=== PATIENT | male | born 1955 | race Two or more races ===

== ENCOUNTER 2022-04-10 23:34 | Inpatient (IN) | payer OTHER, MEDICAID ==
[~2022-04-10] VITALS: Ht 157.5 cm; Wt 71.1 kg
[~2022-04-10 23:34] MED LIST: ASPI-431 PO; CANA100T PO; CHOL20009 PO; GABA250S2 PO; GLIM4TAB PO; HYDR-4833 GT; LOSA-39 PO; METF-372 PO; pravastatin PO
[2022-04-11 01:38] LABS: Basophils # (auto) 0.1 10 ^3/uL (0-0.2); Basophils % (auto) 0.9 % (0.0-2.0); Eosinophils # (auto) 0.2 10 ^3/uL (0-0.8); Hematocrit 38.9 % (41.0-53.0); Hemoglobin 13.2 g/dL (13.5-17.5); Lymphocytes # (auto) 1.6 10 ^3/uL (0.4-5.4); Lymphocytes % (auto) 28.6 % (10.0-50.0); Mean Corpuscular Hemoglobin 29.7 pg (28.0-32.0); Mean Corpuscular Hgb Conc. 34.1 g/dL (32.0-36.0); Mean Corpuscular Volume 87.3 fL (80.0-100.0); Monocytes # (auto) 0.5 10 ^3/uL (0-1.3); Monocytes % (auto) 9.3 % (0.0-12.0); Neutrophils # (auto) 3.2 10 ^3/uL (1.6-8.6); Neutrophils % (auto) 58.2 % (37.0-80.0); Nucleated Red Blood Cells % 0.1 %; Red Blood Cells 4.45 10^6/uL (4.5-5.90); Red Cell Distribution Width 13.3 % (11.8-14.3); White Blood Cell 5.4 10^3/uL (4.4-10.8)
[2022-04-11 01:54] LABS: Albumin 3.7 g/dL (3.4-5.0); BUN/Creatinine Ratio 14.6; Calcium 8.1 mg/dL (8.5-10.1); Magnesium 2.3 mg/dL (1.6-2.6); Potassium 5.4 mmol/L (3.5-5.1)
[2022-04-11 01:56] LABS: Bilirubin, Total 0.3 mg/dL (0.2-1.0); Total Protein 7.2 g/dL (6.4-8.2)
[2022-04-11] MEDS ORDERED: ASPirin 325 MG TAB PO ONE (02:45)
[2022-04-11] MEDS ORDERED: NITROGLYCERIN 0.4 MG SL TAB SL ONE (02:45)
[2022-04-11] MEDS ORDERED: MORPHINE SULFATE INJ 2 MG/ml SYRG IV ONE (02:45)
[2022-04-11] MEDS ORDERED: ACETAMINOPHEN 325 MG TAB PO PRN (07:00)
[2022-04-11] MEDS ORDERED: DEXTROSE (50%) 50ML SYRG IV PRN (07:00)
[2022-04-11] MEDS ORDERED: ONDANSETRON HCL 4 MG/2 ML VIAL IV PRN (07:00)
[2022-04-11] MEDS ORDERED: NITROGLYCERIN 0.4 MG SL TAB SL PRN (07:00)
[2022-04-11] MEDS ORDERED: cloNIDine HCL 0.1 MG TAB PO PRN (07:00)
[2022-04-11] MEDS ORDERED: MORPHINE SULFATE INJ 2 MG/ml SYRG IV PRN (07:00)
[2022-04-11] MEDS ORDERED: ENOXAPARIN SOD 80 MG/0.8ML SYRINGE SC ONE (07:15)
[2022-04-11] MEDS ORDERED: SODIUM ZIRCONIUM CYCL 10 GM PAK PO ONE (09:30)
[2022-04-11] MEDS: METOPROLOL TARTRATE 25 MG TAB PO SCH ×2 (09:44→21:27)
[2022-04-11] MEDS: amLODIPine BESYLATE 5 MG TAB PO SCH (09:45)
[2022-04-11] MEDS: ASPirin 81 mg TAB PO SCH (09:45)
[2022-04-11 09:58] LABS: Cholesterol 313 mg/dL (< 200)
[2022-04-11] MEDS ORDERED: PANTOPRAZOLE 40 MG TAB PO SCH (10:00)
[2022-04-11 10:01] LABS: HDL Cholesterol 41 mg/dL (40-59); Triglycerides 529 mg/dL (< 150)
[2022-04-11] MEDS ORDERED: ADENOSINE 60 MG in GIVE UN-DILUTED 0 ML IV STA (10:44)
[2022-04-11] MEDS: ACCU-CHEK COMFORT CURVE STRIP VI SCH ×2 (11:43→17:32)
[2022-04-11] MEDS: InsuLIN REG 1unit/0.01ml Soln (100units/ml) SC SCH ×2 (11:47→17:39)
[2022-04-11 13:08] VITALS: BP 147/88
[2022-04-11 18:27] VITALS: BP 157/99
[2022-04-11 20:00] VITALS: BP 154/92
[2022-04-11] MEDS: ATORVASTATIN 20 MG TAB PO SCH (21:28)
[2022-04-11 22:00] VITALS: BP 120/78
[2022-04-12] MEDS: ACCU-CHEK COMFORT CURVE STRIP VI SCH ×5 (00:09→23:45)
[2022-04-12] MEDS: InsuLIN REG 1unit/0.01ml Soln (100units/ml) SC SCH ×5 (00:12→23:46)
[2022-04-12 03:24] LABS: Basophils # (auto) 0.1 10 ^3/uL (0-0.2); Basophils % (auto) 0.8 % (0.0-2.0); Eosinophils # (auto) 0.2 10 ^3/uL (0-0.8); Eosinophils % (auto) 2.7 % (0.0-7.0); Hematocrit 36.1 % (41.0-53.0); Hemoglobin 12.5 g/dL (13.5-17.5); Lymphocytes # (auto) 2.2 10 ^3/uL (0.4-5.4); Lymphocytes % (auto) 34.5 % (10.0-50.0); Mean Corpuscular Hgb Conc. 34.7 g/dL (32.0-36.0); Mean Corpuscular Volume 86.7 fL (80.0-100.0); Monocytes # (auto) 0.6 10 ^3/uL (0-1.3); Monocytes % (auto) 8.9 % (0.0-12.0); Neutrophils # (auto) 3.4 10 ^3/uL (1.6-8.6); Neutrophils % (auto) 53.1 % (37.0-80.0); Nucleated Red Blood Cells % 0.1 %; Red Blood Cells 4.17 10^6/uL (4.5-5.90); Red Cell Distribution Width 13.5 % (11.8-14.3); White Blood Cell 6.4 10^3/uL (4.4-10.8)
[2022-04-12 03:43] LABS: Calcium 8.1 mg/dL (8.5-10.1); Potassium 4.7 mmol/L (3.5-5.1); Uric Acid 5.1 mg/dL (3.5-7.2)
[2022-04-12 03:46] LABS: BUN/Creatinine Ratio 16.8; Bilirubin, Total 0.2 mg/dL (0.2-1.0); Phosphorus 2.9 mg/dL (2.5-4.90); Total Protein 6.2 g/dL (6.4-8.2)
[2022-04-12 05:00] VITALS: BP 106/67
[2022-04-12 09:33] VITALS: BP 146/86
[2022-04-12] MEDS: ASPirin 81 mg TAB PO SCH (09:54)
[2022-04-12] MEDS: METOPROLOL TARTRATE 25 MG TAB PO SCH ×2 (09:54→21:57)
[2022-04-12] MEDS: amLODIPine BESYLATE 5 MG TAB PO SCH (09:54)
[2022-04-12] MEDS: ENOXAPARIN SOD 30 MG/0.3 ML SYRINGE SC SCH (09:56)
[2022-04-12 12:42] VITALS: BP 141/81
[2022-04-12 16:34] VITALS: BP 133/75
[2022-04-12 21:28] LABS: Urine Bacteria NONE SEEN /hpf (None Seen); Urine Blood Negative /uL (Negative); Urine Specific Gravity 1.011 (1.001-1.035); Urine WBC <1 /hpf (0 - 3)
[2022-04-12] MEDS: ATORVASTATIN 20 MG TAB PO SCH (21:57)
[2022-04-12 22:00] VITALS: BP 134/82
[2022-04-13 03:19] LABS: Protein, Urine 145.6 mg/dL (0.0-11.9)
[2022-04-13 05:00] VITALS: BP 127/78
[2022-04-13] MEDS: ACCU-CHEK COMFORT CURVE STRIP VI SCH ×4 (05:36→23:11)
[2022-04-13] MEDS: InsuLIN REG 1unit/0.01ml Soln (100units/ml) SC SCH ×4 (05:41→23:15)
[2022-04-13 07:08] LABS: BUN/Creatinine Ratio 21.4; Calcium 8.8 mg/dL (8.5-10.1); Potassium 4.5 mmol/L (3.5-5.1)
[2022-04-13 08:00] VITALS: BP 140/82
[2022-04-13] MEDS: ASPirin 81 mg TAB PO SCH (10:35)
[2022-04-13] MEDS: METOPROLOL TARTRATE 25 MG TAB PO SCH ×2 (10:35→21:06)
[2022-04-13] MEDS: amLODIPine BESYLATE 5 MG TAB PO SCH (10:36)
[2022-04-13] MEDS: ENOXAPARIN SOD 30 MG/0.3 ML SYRINGE SC SCH (10:37)
[2022-04-13] MEDS: SODIUM CHLORIDE 0.9% 1,000 ML IV SCH (10:49)
[2022-04-13 12:00] VITALS: BP 144/82
[2022-04-13 16:00] VITALS: BP 127/67
[2022-04-13] MEDS: ATORVASTATIN 20 MG TAB PO SCH (21:05)
[2022-04-13 22:00] VITALS: BP 140/76
[2022-04-14 05:28] VITALS: BP 165/88
[2022-04-14] MEDS: InsuLIN REG 1unit/0.01ml Soln (100units/ml) SC SCH ×3 (05:56→17:54)
[2022-04-14] MEDS: ACCU-CHEK COMFORT CURVE STRIP VI SCH ×3 (05:57→17:51)
[2022-04-14] MEDS: SODIUM CHLORIDE 0.9% 1,000 ML IV SCH (06:14)
[2022-04-14 06:28] LABS: Basophils # (auto) 0 10 ^3/uL (0-0.2); Basophils % (auto) 0.5 % (0.0-2.0); Eosinophils # (auto) 0.2 10 ^3/uL (0-0.8); Eosinophils % (auto) 3.3 % (0.0-7.0); Hematocrit 38.1 % (41.0-53.0); Hemoglobin 13.4 g/dL (13.5-17.5); Mean Corpuscular Hemoglobin 30.3 pg (28.0-32.0); Mean Corpuscular Hgb Conc. 35.3 g/dL (32.0-36.0); Mean Corpuscular Volume 85.8 fL (80.0-100.0); Monocytes # (auto) 0.6 10 ^3/uL (0-1.3); Monocytes % (auto) 9.5 % (0.0-12.0); Neutrophils # (auto) 3.1 10 ^3/uL (1.6-8.6); Neutrophils % (auto) 52.7 % (37.0-80.0); Nucleated Red Blood Cells % 0.1 %; Red Blood Cells 4.44 10^6/uL (4.5-5.90); Red Cell Distribution Width 13.2 % (11.8-14.3); White Blood Cell 5.9 10^3/uL (4.4-10.8)
[2022-04-14 06:31] LABS: BUN/Creatinine Ratio 21.8; Calcium 8.5 mg/dL (8.5-10.1); Potassium 4.6 mmol/L (3.5-5.1)
[2022-04-14 06:35] LABS: INR 0.92 (0.9-1.15); Partial Thromboplastin Time 25.6 sec (24.6-33.4)
[2022-04-14 08:00] VITALS: BP 156/87
[2022-04-14] MEDS: ACETYLCYSTEINE ORAL for CIN 20%(200MG/ML) 4ML PO SCH ×2 (10:00→22:00)
[2022-04-14] MEDS: METOPROLOL TARTRATE 25 MG TAB PO SCH ×2 (10:05→22:07)
[2022-04-14] MEDS: ASPirin 81 mg TAB PO SCH (10:05)
[2022-04-14] MEDS: amLODIPine BESYLATE 5 MG TAB PO SCH (10:06)
[2022-04-14] MEDS: ENOXAPARIN SOD 30 MG/0.3 ML SYRINGE SC SCH (10:07)
[2022-04-14 13:00] VITALS: BP 115/79
[2022-04-14 16:52] VITALS: BP 131/74
[2022-04-14 22:00] VITALS: BP 126/66
[2022-04-14] MEDS: ATORVASTATIN 20 MG TAB PO SCH (22:06)
[2022-04-14] MEDS ORDERED: DULA1INJ SC (23:57)
[2022-04-15] MEDS: SODIUM CHLORIDE 0.9% 1,000 ML IV SCH ×2 (02:17→22:10)
[2022-04-15 05:00] VITALS: BP 126/76
[2022-04-15] MEDS: InsuLIN REG 1unit/0.01ml Soln (100units/ml) SC SCH ×5 (06:15→23:12)
[2022-04-15] MEDS: ACCU-CHEK COMFORT CURVE STRIP VI SCH ×5 (06:16→23:07)
[2022-04-15 09:00] VITALS: BP 139/79
[2022-04-15] MEDS: ACETYLCYSTEINE ORAL for CIN 20%(200MG/ML) 4ML PO SCH ×2 (09:12→22:00)
[2022-04-15] MEDS: METOPROLOL TARTRATE 25 MG TAB PO SCH ×2 (10:08→22:10)
[2022-04-15] MEDS: ASPirin 81 mg TAB PO SCH (10:08)
[2022-04-15] MEDS: ENOXAPARIN SOD 30 MG/0.3 ML SYRINGE SC SCH (10:09)
[2022-04-15] MEDS: amLODIPine BESYLATE 5 MG TAB PO SCH (10:09)
[2022-04-15 11:04] LABS: BUN/Creatinine Ratio 23.4; Calcium 8.5 mg/dL (8.5-10.1); Potassium 5.1 mmol/L (3.5-5.1)
[2022-04-15 13:00] VITALS: BP 154/73
[2022-04-15 17:00] VITALS: BP 118/76
[2022-04-15 22:00] VITALS: BP 124/88
[2022-04-15] MEDS: ATORVASTATIN 20 MG TAB PO SCH (22:10)
[2022-04-16 05:00] VITALS: BP 152/81
[2022-04-16 06:04] LABS: Calcium 8.8 mg/dL (8.5-10.1); Potassium 4.7 mmol/L (3.5-5.1)
[2022-04-16 06:09] LABS: BUN/Creatinine Ratio 22.7
[2022-04-16] MEDS: ACCU-CHEK COMFORT CURVE STRIP VI SCH ×4 (06:29→23:24)
[2022-04-16] MEDS: InsuLIN REG 1unit/0.01ml Soln (100units/ml) SC SCH ×4 (06:32→23:24)
[2022-04-16 08:00] VITALS: BP 118/68
[2022-04-16 09:00] VITALS: BP 118/68
[2022-04-16] MEDS: ASPirin 81 mg TAB PO SCH (11:43)
[2022-04-16] MEDS: amLODIPine BESYLATE 5 MG TAB PO SCH (11:44)
[2022-04-16] MEDS: ENOXAPARIN SOD 30 MG/0.3 ML SYRINGE SC SCH (11:44)
[2022-04-16] MEDS: METOPROLOL TARTRATE 25 MG TAB PO SCH ×2 (11:44→21:31)
[2022-04-16 13:00] VITALS: BP 152/87
[2022-04-16] MEDS: SODIUM CHLORIDE 0.9% 1,000 ML IV SCH (16:00)
[2022-04-16 17:00] VITALS: BP 147/78
[2022-04-16] MEDS: ATORVASTATIN 20 MG TAB PO SCH (21:31)
[2022-04-16 22:00] VITALS: BP 121/75
[2022-04-17 05:00] VITALS: BP 134/79
[2022-04-17 05:36] LABS: BUN/Creatinine Ratio 20.5; Calcium 8.3 mg/dL (8.5-10.1); Potassium 5.1 mmol/L (3.5-5.1)
[2022-04-17] MEDS: ACCU-CHEK COMFORT CURVE STRIP VI SCH ×3 (05:42→17:28)
[2022-04-17] MEDS: InsuLIN REG 1unit/0.01ml Soln (100units/ml) SC SCH ×4 (05:43→21:49)
[2022-04-17 09:01] VITALS: BP 148/87
[2022-04-17] MEDS: METOPROLOL TARTRATE 25 MG TAB PO SCH (09:45)
[2022-04-17] MEDS: ASPirin 81 mg TAB PO SCH (09:45)
[2022-04-17] MEDS: ENOXAPARIN SOD 30 MG/0.3 ML SYRINGE SC SCH (09:45)
[2022-04-17] MEDS: amLODIPine BESYLATE 5 MG TAB PO SCH (09:45)
[2022-04-17 13:00] VITALS: BP 121/76
[2022-04-17] MEDS: SODIUM CHLORIDE 0.9% 1,000 ML IV SCH (14:12)
[2022-04-17 17:00] VITALS: BP 141/83
[2022-04-17 20:00] VITALS: BP 121/76
[2022-04-17 22:00] VITALS: BP 149/89
[2022-04-18] MEDS: ATORVASTATIN 20 MG TAB PO SCH (04:34)
[2022-04-18] MEDS: METOPROLOL TARTRATE 25 MG TAB PO SCH ×2 (04:35→09:15)
[2022-04-18 05:00] VITALS: BP 124/70
[2022-04-18] MEDS: InsuLIN REG 1unit/0.01ml Soln (100units/ml) SC SCH ×2 (06:00→11:08)
[2022-04-18] MEDS: ACCU-CHEK COMFORT CURVE STRIP VI SCH ×3 (06:00→11:08)
[2022-04-18 06:29] LABS: BUN/Creatinine Ratio 18.9; Calcium 8.4 mg/dL (8.5-10.1); Potassium 4.9 mmol/L (3.5-5.1)
[2022-04-18 08:00] VITALS: BP 124/71
[2022-04-18 08:36] VITALS: BP 124/71
[2022-04-18] MEDS: SODIUM CHLORIDE 0.9% 1,000 ML IV SCH (09:14)
[2022-04-18] MEDS: amLODIPine BESYLATE 5 MG TAB PO SCH (09:16)
[2022-04-18] MEDS ORDERED: APIXABAN 5 MG TAB PO SCH (10:00)
[2022-04-18] MEDS ORDERED: ASPirin 81 mg TAB PO SCH (10:00)
[2022-04-18] MEDS ORDERED: APIX5TAB PO (11:32)
[2022-04-18] MEDS ORDERED: AMIO200T33 PO (11:32)
[2022-04-18 12:17] VITALS: BP 124/71
[2022-04-18 13:13] VITALS: BP 137/77
== END 2022-04-18 13:32 | disposition home or self-care (01) | DRG 280 ==
LOC: ER 23:34 → TELE 04-11 07:02 → TELE-WESTW 04-11 18:28
PROVIDERS: ADMIT Nurse Practitioner; ATTEND Family Medicine
DX: I21.4 Non-ST elevation (NSTEMI) myocardial infarction (principal); I50.33 Acute on chronic diastolic (congestive) heart failure; N17.0 Acute kidney failure with tubular necrosis; I16.1 Hypertensive emergency; I13.0 Hypertensive heart and chronic kidney disease with heart failure and stage 1 through stage 4 chronic kidney disease, or unspecified chronic kidney disease; I25.10 Atherosclerotic heart disease of native coronary artery without angina pectoris; N40.0 Benign prostatic hyperplasia without lower urinary tract symptoms; Z20.822 Contact with and (suspected) exposure to COVID-19; N18.32 Chronic kidney disease, stage 3b; E11.22 Type 2 diabetes mellitus with diabetic chronic kidney disease; E11.21 Type 2 diabetes mellitus with diabetic nephropathy; E66.01 Morbid (severe) obesity due to excess calories; E78.00 Pure hypercholesterolemia, unspecified; I48.0 Paroxysmal atrial fibrillation; Z68.29 Body mass index [BMI] 29.0-29.9, adult; Z79.4 Long term (current) use of insulin; Z79.899 Other long term (current) drug therapy; Z82.3 Family history of stroke; Z82.49 Family history of ischemic heart disease and other diseases of the circulatory system; Z83.3 Family history of diabetes mellitus; Z95.1 Presence of aortocoronary bypass graft
CPT/HCPCS: 36415; 71046; 78452; 80048; 80053; 80061; 81001; 82570; 82962; 83036; 83735; 83880; 84100; 84156; 84300; 84443; 84484; 84550; 85025; 85610; 85730; 86850; 86900; 86901; 87426; 93005; 93017; 93306; 96365; 96372; 99291; G0378; J0153; J1815

== ENCOUNTER 2023-02-09 14:00 | Emergency (ER) | payer OTHER, MEDICAID ==
[~2023-02-09] VITALS: Ht 160 cm; Wt 71.3 kg
[~2023-02-09 14:00] MED LIST changes: +AMIO200T33 PO; +APIX5TAB PO; +DULA1INJ SC; -GABA250S2 PO; +GABA250S7 PO; -LOSA-39 PO; +LOSA100T58 PO
[2023-02-09] MEDS ORDERED: SODIUM CHLORIDE 0.9% 1,000 ML IV ONE (14:30)
[2023-02-09 14:47] LABS: Basophils # (auto) 0.1 10 ^3/uL (0-0.2); Basophils % (auto) 0.6 % (0.0-2.0); Eosinophils # (auto) 0.2 10 ^3/uL (0-0.8); Eosinophils % (auto) 2.3 % (0.0-7.0); Hematocrit 38.6 % (41.0-53.0); Hemoglobin 12.8 g/dL (13.5-17.5); Lymphocytes # (auto) 1.9 10 ^3/uL (0.4-5.4); Lymphocytes % (auto) 24.4 % (10.0-50.0); Mean Corpuscular Hemoglobin 29.3 pg (28.0-32.0); Mean Corpuscular Hgb Conc. 33.2 g/dL (32.0-36.0); Monocytes # (auto) 0.7 10 ^3/uL (0-1.3); Monocytes % (auto) 8.6 % (0.0-12.0); Neutrophils # (auto) 5.1 10 ^3/uL (1.6-8.6); Neutrophils % (auto) 64.1 % (37.0-80.0); Nucleated Red Blood Cells % 0.1 %; Red Blood Cells 4.38 10^6/uL (4.5-5.90); Red Cell Distribution Width 13.5 % (11.8-14.3)
[2023-02-09 15:30] LABS: Alanine Aminotransferase 18 U/L (7-40); Albumin 4.5 g/dL (3.2-4.8); Alkaline Phosphatase 118 U/L (46-116); Anion Gap 10.5 (5-15); Aspartate Aminotransferase 16 U/L (13-40); BUN/Creatinine Ratio 18.5 (10.0-20.0); Blood Urea Nitrogen 34 mg/dL (9-23); Calcium 9.7 mg/dL (8.5-10.1); Carbon Dioxide 19.5 mmol/L (20-30); Chloride 108 mmol/L (98-107); Glucose 132 mg/dL (74-106); Sodium 138 mmol/L (136-145)
[2023-02-09 15:31] LABS: Bilirubin, Total 0.5 mg/dL (0.2-1.0); Total Protein 6.9 g/dL (5.7-8.2)
[2023-02-09 15:52] LABS: Urine Bacteria FEW /hpf (None Seen); Urine Blood TRACE /uL (Negative); Urine Clarity HAZY (Clear); Urine Color Yellow (Yellow); Urine Hyaline Cast MANY /lpf (0 - 2); Urine Mucus FEW (None Seen); Urine Protein, UAD 3+ (Negative); Urine Specific Gravity 1.019 (1.001-1.035); Urine Urobilinogen Normal (Negative); Urine WBC 2 /hpf (0 - 3)
[2023-02-09 16:30] VITALS: BP 158/83; PULSE 88; RESP 18; TEMP 98.3; O2SAT 96
[2023-02-09] MEDS ORDERED: FUROSEMIDE 20 MG/2 ML VIAL IV ONE (16:45)
== END 2023-02-09 17:10 | disposition home or self-care (01) ==
LOC: ER 14:00
DX: E11.65 Type 2 diabetes mellitus with hyperglycemia (principal); R07.89 Other chest pain; I10 Essential (primary) hypertension; I25.2 Old myocardial infarction; E78.5 Hyperlipidemia, unspecified; Z95.1 Presence of aortocoronary bypass graft; Z79.82 Long term (current) use of aspirin; Z79.84 Long term (current) use of oral hypoglycemic drugs; Z79.899 Other long term (current) drug therapy
CPT/HCPCS: 36415; 71045; 80053; 81001; 84484; 85025; 96374; 99284; J1940; J7030

== ENCOUNTER 2024-05-29 21:15 | Emergency (ER) | payer OTHER, MEDICAID ==
[~2024-05-29] VITALS: Ht 160 cm; Wt 72.0 kg
[~2024-05-29 21:15] MED LIST changes: +LOSA-535 PO; -LOSA100T58 PO
--- NOTE | 2024-05-29 21:39 | ED.PDOC ---
General HPI Comments 69-year-old male who came to ER for urinary issues. Patient has history of hypertension, diabetes, MT, BPH. States for the past 4 days, he has been having bilateral flank pains radiating to his hypogastric area, associated with dysuria, urinary dribbling, and difficulty voiding. Noted to have nausea and headaches. Denies any fever or chills. Chief Complaint: Urinary Time Seen by MD: 21:36 Primary Care Provider: LYNNE Hylton notes: Nurses Notes Allergies: Coded Allergies: NO KNOWN ALLERGIES (Unverified , 11/16/12) Home Meds Active Scripts Amiodarone Hcl (Amiodarone Hcl) 200 Mg Tab, 200 MG PO BID, #180 TAB Prov:MARYBETH TEAGUE MD 04/18/22 Apixaban Base (ELIQUIS) 5 Mg Tab, 5 MG PO BID, #180 TAB Prov:MARYBETH TEAGUE MD 04/18/22 Reported Medications Dulaglutide (Trulicity) 0.75 Mg/0.5 Ml Inj, 0.75 MG SC, INJ 04/14/22 Canagliflozin (INVOKANA) 100 Mg Tab, PO DAILY, TAB 01/28/17 [pravastatin] No Conflict Check, 40 MG PO HS 11/22/12 Hydrocodone-Acetaminophen (Gorman 5/325MG) 1 Tab Tb, 1 TAB GT TIDP 11/22/12 Losartan Potassium (Losartan Potassium) 100 Mg Tab, 100 MG PO DAILY 11/22/12 Gabapentin (GABAPENTIN) 250 Mg/5 Ml Kaitlin, 300 MG PO TID 11/22/12 Aspirin (EQ ASPIRIN ADULT LOW DOSE) 81 Mg Tab, 81 MG PO DAILY 11/22/12 Cholecalciferol (VITAMIN D) 2,000 Unit Tab, 5000 UNIT PO QWEEKLY 11/22/12 Glimepiride (Amaryl) 4 Mg Tab, 4 MG PO BIDWM 11/22/12 Metformin Hydrochloride (Metformin Hcl) 1,000 Mg Tab, 2000 MG PO BIDAC 11/22/12 Information Source: Patient Mode of Arrival: Ambulatory Severity: Moderate Inability to void: Moderate Timing: Days Duration: Intermittent Has not urinated for: Minutes Onset: Spontaneous Symptoms: Dysuria, Inability to void History of: BPH Location: Suprapubic, (R) Flank, (L)Flank associated signs and symptoms: Abdominal Pain, Nausea, Flank Pain, Dysuria, Inability to Void Review of Systems: REVIEW OF SYSTEMS: No fever, no chills, or fatigue HEENT: No sore throat, no earache, no congestion, no neck pain. Cardiac: No chest pain. No palpitations. Lungs: No shortness of breath, no cough. GI: No nausea, no vomiting, no diarrhea, no constipation, (+) abdominal pain : (+) dysuria and inability to void, (+) flank pains, no frequency, or urgency. No hematuria. Musculoskeletal: No joint pain , no joint swelling, no extremity edema. Skin: No rash, no itching. Neuro: (+) headache, no dizziness, no weakness Vital Signs Vital Signs Date Time Temp Pulse Resp B/P (MAP) Pulse Ox O2 Delivery O2 Flow Rate FiO2 05/29/24 22:14 98.1 99 16 163/78 (106) 97 98.1 05/29/24 22:14 Room Air Physical Exam General: Awake, alert and oriented. No acute distress. Skin: Skin in warm, dry and intact. Appropriate color for ethnicity. Nailbeds pink with no cyanosis. HEENT: The head is normocephalic and atraumatic. Conjunctivae are clear without exudates or hemorrhage. Sclera is non-icteric. EOM are intact. No signs of nystagmus. Eyelids are normal in appearance without swelling or lesions. Oral mucosa is pink and moist Neck: The neck is supple with normal range of motion. No JVD. Cardiac: Heart rate and rhythm are normal. No murmurs, gallops, or rubs are auscultated. Respiratory: No signs of respiratory distress. Lung sounds are clear in all lobes bilaterally without rales, ronchi, or wheezes. Abdominal: Abdomen is soft, non-tender without distention. Bowel sounds are present and normoactive in all four quadrants. No CVA tenderness Extremities: Upper and lower extremities are atraumatic in appearance without deformity or edema. Neurological: The patient is awake, alert and oriented to person, place, and time with normal speech. Speech is clear. There is no facial asymmetry. Psychiatric: Appropriate mood and affect. Good judgement and insight. No visual or auditory hallucinations. Past Medical History PAST MEDICAL HISTORY: DM, High Lipids, HTN, MT Past Medical History (Other): Benign prostatic hypertrophy Surgical History: CABG, Unknown Family History Family History: Reviewed,noncontributory to illness Social History Smoker: Non-Smoker Alcohol: Denies ETOH Use Drugs: Denies Drug Use Lives In: Home Was a procedure done? Was a procedure done?: No Differential Diagnosis Kidney stone (Female): N/A Kidney stone (Male): Pyelonephritis, Renal failure, Strain, Urinary obstruction, Urolithiasis, Renal infarction, Urinary tract infection Urinary Problem (Male): Renal Failure, Urethritis, Urinary Retention, Urolithiasis, UTI, Other (STI) X-Ray, Labs, Meds, VS Vital Signs Date Time Temp Pulse Resp B/P (MAP) Pulse Ox O2 Delivery O2 Flow Rate FiO2 05/29/24 22:14 98.1 99 16 163/78 (106) 97 98.1 05/29/24 22:14 99 16 97 Room Air 05/29/24 21:30 98.1 99 16 163/78 (106) 97 Lab Test 05/29/24 22:35 05/29/24 22:05 Range/Units Urine Color Light-brown Yellow Urine Clarity Ex.turbid Clear Urine pH 5.5 5.0-9.0 Urine Specific Mason 1.015 1.001-1.035 Urine Protein 2+ H Negative Urine Ketones Negative Negative Urine Blood 3+ H Negative /uL Urine Nitrite Negative Negative Urine Bilirubin Negative Negative Urine Urobilinogen Normal Negative mg/dL Urine Leukocyte Esterase 3+ Negative /uL Urine RBC 24 0 - 3 /hpf Urine WBC 741 0 - 3 /hpf Urine WBC Clumps Present None Seen /hpf Urine Squamous Epithelial Cells Few <5 /hpf Urine Bacteria Mod H None Seen /hpf Urine Mucus Few None Seen Urine Glucose 4+ H Normal mg/dL White Blood Count 8.9 4.4-10.8 10^3/uL Red Blood Count 4.19 L 4.5-5.90 10^6/uL Hemoglobin 12.4 L 13.5-17.5 g/dL Hematocrit 37.8 L 41.0-53.0 % Mean Corpuscular Volume 90.1 80.0-100.0 fL Mean Corpuscular Hemoglobin 29.5 28.0-32.0 pg Mean Corpuscular Hemoglobin Concent 32.7 32.0-36.0 g/dL Red Cell Distribution Width 13.6 11.8-14.3 % Platelet Count 307 140-450 10^3/uL Mean Platelet Volume 8.4 6.9-10.8 fL Neutrophils (%) (Auto) 37.0-80.0 % Lymphocytes (%) (Auto) 10.0-50.0 % Monocytes (%) (Auto) 0.0-12.0 % Basophils (%) (Auto) 0.0-2.0 % Neutrophils # (Auto) 1.6-8.6 10 ^3/uL Lymphocytes # (Auto) 0.4-5.4 10 ^3/uL Monocytes # (Auto) 0-1.3 10 ^3/uL Differential Total Cells Counted 100.0 100 Neutrophils % (Manual) 73 37.0-80.0 Band Neutrophils % (Manual) 0 Lymphocytes % (Manual) 15 10.0-50.0 Monocytes % (Manual) 12 0-12 Eosinophils % (Manual) 0 0-7 Basophils % (Manual) 0 0.0-2.0 Metamyelocytes % (manual) 0 Myelocytes % (Manual) 0 Promyelocytes % (Manual) 0 Blast Cells % (Manual) 0 Reactive Lymphocytes 0 Platelet Estimate Adequate Sodium Level 141 136-145 mmol/L Potassium Level 5.1 3.5-5.1 mmol/L Chloride Level 110 H 98-107 mmol/L Carbon Dioxide Level 22 20-31 mmol/L Anion Gap 9 5-15 Blood Urea Nitrogen 46 H 9-23 mg/dL Creatinine 2.68 H 0.700-1.30 mg/dL Glomerular Filtration Rate Calc 25 >90 mL/min BUN/Creatinine Ratio 17.2 10.0-20.0 Serum Glucose 152 H 74-106 mg/dL Calcium Level 9.7 8.7-10.4 mg/dL Magnesium Level 2.5 1.6-2.6 mg/dL Total Bilirubin 0.3 0.2-1.0 mg/dL Aspartate Amino Transferase (AST) 13 13-40 U/L Alanine Aminotransferase (ALT) 25 7-40 U/L Alkaline Phosphatase 94 46-116 U/L Total Protein 7.2 5.7-8.2 g/dL Albumin 4.3 3.2-4.8 g/dL Current Medications Medications (Trade) Dose Ordered Sig/Linda Route Start Time Stop Time Status Last Admin Acetaminophen (Tylenol Tablet Or Capsule) 1,000 mg ONCE ONCE PO 05/29/24 21:45 05/29/24 21:49 DC 05/29/24 22:10 Exam: CT CT AB PEL WO CON-NO ORAL OR IV Findings: Lung Bases: No acute or significant lung base finding. Normal heart size. No pleural or pericardial effusion. Scattered coronary artery calcification. Calcifications of the aortic valve. Liver: The liver is normal in size. No focal lesions. Gallbladder and Biliary Tree: Unremarkable Spleen: Unremarkable Pancreas: The pancreas is grossly normal in appearance. Adrenal Glands: Unremarkable Kidneys: Punctate nonobstructing left renal calculus Bladder: There is diffuse bladder wall thickening measuring 5-6 mm. This may be due to poor urinary distention or infection Bowel: The stomach is grossly normal in appearance. Small bowel and colon are normal in caliber and distribution. The appendix is not visualized; however, no secondary findings of acute appendicitis identified. Ascites: Absent Lymphadenopathy: No mesenteric, retroperitoneal or periportal lymphadenopathy. Abdominal Wall and Mesentery: Unremarkable. Vasculature: The visualized abdominal aorta is normal in size and caliber. Evaluation of abdominal and pelvic vessels is limited due to lack of intravenous contrast. Pelvic Organs: Prostate measures 6 x 4.8 cm Musculoskeletal: No aggressive focal bony lesions, acute fractures or dislocation. Sternal wire sutures and Soft tissues: Unremarkable IMPRESSION: 1. Punctate nonobstructing left renal calculus. 2. Prostate measures 6 x 5 cm 3. Diffuse thickening of the bladder wall measuring 5-6 mm. This may be due to poor urinary distention or infection. EXAM: CT HEAD WITHOUT CONTRAST FINDINGS: There is no evidence of acute intracranial hemorrhage, extra-axial collection, mass effect, midline shift, herniation or hydrocephalus. Small lacunar infarct right basal ganglion The ventricles, sulci and cisterns are age appropriate. The alanis-white differentiation is intact. Patchy periventricular and subcortical white matter hypoattenuation is n onspecific but may be related to small vessel ischemic disease. The visualized paranasal sinuses and mastoid air cells are clear. The surrounding soft tissues and osseous structures are unremarkable. IMPRESSION: 1. No acute intracranial hemorrhage. 2. No CT findings of territorial ischemia. 3. Paranasal sinuses appear normal Time of 1ST Reevaluation: 21:32 Reevaluation 1ST: Unchanged Patient Education/Counseling: Diagnosis, Treatment Family Education/Counseling: No Family Present Departure 1 Departure Time of Disposition: 23:47 Impression: Primary Impression: Nephrolithiasis Additional Impression: Urinary tract infection Disposition: 01 HOME / SELF CARE / HOMELESS Condition: Stable Additional Instructions: INSTRUCCIONES DE LIZ DE Urgencias Instrucciones: Britt atentamente todas las instrucciones proporcionadas en lori paquete. jaimee antibiticos segn lo recetado. Aunque le hayan dado el liz del Departamento de Emergencias, esto no significa que tenga un "certificado de buena arnaldo". [] Hoy no se [place] realizado ningn diagnstico definitivo para black sntomas. Es posible que ests en proceso de desarrollar latonya enfermedad grave. Es por eso que debe regresar al servicio de urgencias sin falta si presenta algn sntoma nuevo o que empeora (especialmente si black sntomas incluyen dolor en el pecho, dificultad para respirar, dolor abdominal, fiebre, dolor de angeline, confusin, dificultad para araceli o caminar). Tambin es muy importante que consulte a un mdico de atencin primaria dentro de los prximos 3 a 5 padilla para realizar un seguimiento. Si no puede conseguir latonya colleen, regrese al servicio de urgencias para latonya nueva evaluacin. If you are unable to get an appointment, return to the ED for re-evaluation. Qu son los clculos renales? Los clculos renales son pequeas piedras que se olga dentro de los riones cuando las sales y los minerales que se encuentran normalmente en la orina se acumulan y se endurecen. Los clculos renales generalmente se expulsan del cuerpo al orinar, ofelia a veces pueden quedarse atascados en el mallory (figura 1). Si eso sucede, los clculos pueden causar: ?Dolor en el costado o en la parte baja del kvng del estmago ?Octavia en la orina (que puede hacer que la orina luzca cee o geo) ?Nuseas o vmitos ?Dolor al orinar ?Necesidad de orinar en forma urgente [employer] s si tengo clculos renales? Si jose mdico o enfermero piensa que usted tiene clculos renales, puede indicarle un estudio de imagen para detectar los clculos. (Los estudios de imagen crean imgenes del interior del cuerpo). [employer] Eng[employer] se tratan los clculos renales? El tratamiento de cada persona es un poco distinto. El tratamiento adecuado para usted depender de: ?El tamao, el tipo y la ubicacin del clculo ?Cunto dolor sienta ?Cunto est vomitando Si jose clculo es pequeo y solo causa sntomas leves, es posible que pueda quedarse en casa y esperar hasta que jose cuerpo lo expulse en la orina. Si probar esta opcin, jose mdico le dir qu hacer. [place] suele incluir: ?Beber mucho lquido ?Usar medicinas para el dolor o medicinas que faciliten la expulsin del clculo ?Orinar en un colador para atrapar el clculo cuando salga Si jose clculo es gissel o causa sntomas graves, es posible que necesite tratamiento en el hospital. Los clculos renales que no se expulsan naturalmente se pueden tratar con: ?"Litotripsia por onda de choque" Latonya mquina usa ondas sonoras para romper los clculos en pedazos ms pequeos. Lori procedimiento no incluye ciruga, ofelia puede ser doloroso. ?"Nefrolitotoma percutnea" Lori es un tipo especial de ciruga en la que un mdico hace orificios muy pequeos en jose piel, y pasa unos instrumentos minsculos a travs de los orificios y dentro del rin. Luego, elimina el clculo. ?"Ureteroscopa" Un mdico introduce un tubo moran en jose cuerpo de la misma manera que sale la orina. Usa instrumentos ubicados en el extremo del tubo para romper o sacar los clculos. A qu problemas martha prestar atencin? Si intentar expulsar el clculo renal en jose casa, llame a jose mdico o enfermero para que lo asesore si: ?No orina desde hace ms de 8 horas. ?Tiene fiebre de 100.4 F (38 C) o ms, o escalofros. ?Jose orina es opaca, huele mal o tiene ms octavia que antes. ?El dolor del clculo renal empeora mucho y la medicina para el dolor no ayuda. ?Vomita y no puede retener los lquidos. ?El dolor no desaparece en 1 a 2 semanas Qu puedo hacer para no volver a tener clculos renales? Calli yoly agua. Es posible que tambin deba hacer cambios en jose dieta, dependiendo de la composicin de black clculos. Si es as, el mdico o enfermero puede decirle qu alimentos evitar. El mdico o enfermero tambin podra recetarle medicinas nuevas para evitar que se formen nuevos clculos renales. e-Prescriptions Sulfamethoxazole W/Trimethopri (Bactrim Ds Tablet) 1 Tab Tb 1 TAB PO BID for 7 Days, #14 TAB Prov: ROLANDA RUSH MD 05/29/24 Tamsulosin Hcl (Flomax) 0.4 Mg Cap 0.4 MG PO DAILY for 7 Days, #7 CAP Prov: ROLANDA URSH MD 05/29/24 Acetaminophen (Acetaminophen Er) 650 Mg Tab 650 MG PO TID PRN for 5 Days, #15 TAB Prov: ROLANDA RUSH MD 05/29/24 Comments 69-year-old male with nephrolithiasis and urinary tract infection. Patient is stable in the emergency department. Patient well-appearing, nontoxic. Advised prompt follow-up with PCP, return to the ED with any new, worsening or concerning symptoms. Extensive evaluation was performed in attempt to identify or rule out: (See differential diagnosis section) The following tests were ordered, and results were reviewed by me: (See diagnostic results section) The following test were independently interpreted by me: N/A I reviewed and agreed with the following test results read by other providers: N/A I reviewed the following notes from the pt's past medical encounters: (None available at this time) Additional information was gathered from interviewing the following independent historians: N/A Discussion of management or test interpretation with external physician/other qualified health toddler caregiver: N/A Addressed an acute or chronic illness that poses a threat to life or bodily function: Nephrolithiasis with complication of urinary tract infection Decision regarding hospitalization or escalation of hospital level of care: R isks and benefits of admission for further treatment of patient's condition was considered however due to patient's stable condition patient will be discharged to follow up closely or return to care for worsening of condition or inability to follow up. Critical Care Note Critical Care Time?: No Stability Stability form required: No Heart Score Heart Score: Heart Score Response (Comments) Value History N/A 0 EKG N/A 0 Age N/A 0 Risk Factors N/A 0 Troponin N/A 0 Total 0 I personally scribed for ROLANDA RUSH MD ([employer]) on 05/29/24 at 21:39. Electronically submitted by Raul Myers ([employer]). I personally scribed for ROLANDA RUSH MD ([employer]) on 05/29/24 at 22:53. Electronically submitted by Raul Myers ([employer]). ROLANDA RUSH MD May 29, 2024 21:39
[2024-05-29] MEDS: ACETAMINOPHEN 500 MG TAB or CAP PO ONE (22:10)
[2024-05-29 22:19] LABS: Hematocrit 37.8 % (41.0-53.0); Hemoglobin 12.4 g/dL (13.5-17.5); Mean Corpuscular Hemoglobin 29.5 pg (28.0-32.0); Mean Corpuscular Hgb Conc. 32.7 g/dL (32.0-36.0); Mean Corpuscular Volume 90.1 fL (80.0-100.0); Platelet Count (auto) 307 10^3/uL (140-450); Red Blood Cells 4.19 10^6/uL (4.5-5.90); Red Cell Distribution Width 13.6 % (11.8-14.3); White Blood Cell 8.9 10^3/uL (4.4-10.8)
--- NOTE | 2024-05-29 22:28 | DVH ---
EXAM: CT HEAD WITHOUT CONTRAST INDICATION: Severe, new onset, change in headache symptoms. TECHNIQUE: CT of the head without intravenous contrast. Radiation Dose Information: CT Dose: CTDI volume is 56.89 mGy. Dose-length product is 1007.3 mGy*cm The dose indicators for CT are the volume Computed Tomography (CT) Dose Index (CTDIvol) and the Dose Length Product (DLP), and are measured in units of mGy and mGy-cm, respectively. These indicators are not patient dose, but values generated from the CT scanner acquisition factors. The report includes radiation exposure data for exposures received during this examination. COMPARISON: None FINDINGS: There is no evidence of acute intracranial hemorrhage, extra-axial collection, mass effect, midline s hift, herniation or hydrocephalus. Small lacunar infarct right basal ganglion The ventricles, sulci and cisterns are age appropriate. The aalnis-white differentiation is intact. Patchy periventricular and subcortical white matter hypoattenuation is nonspecific but may be related to small vessel ischemic disease. The visualized paranasal sinuses and mastoid air cells are clear. The surrounding soft tissues and osseous structures are unremarkable. IMPRESSION: 1. No acute intracranial hemorrhage. 2. No CT findings of territorial ischemia. 3. Paranasal sinuses appear normal
--- NOTE | 2024-05-29 22:33 | DVH ---
Exam: CT CT AB PEL WO CON-NO ORAL OR IV History: Flank pain, lower abdominal pain, difficulty urinating Comparison Study: None available at time of dictation. TECHNIQUE: Multidetector CT of the abdomen was performed from lung bases to pubic symphysis. Imaging was performed without IV contrast. Axial, coronal and sagittal multiplanar reformats were obtained fr om the axial data set by the technologist. Radiation Dose Information: CT Dose: CTDI volume is 8.62 mGy. Dose-length product is 544.03 mGy*cm FINDINGS: Evaluation of solid organs is limited due to lack of intravenous contrast use. Findings: Lung Bases: No acute or significant lung base finding. Normal heart size. No pleural or pericardial effusion. Scattered coronary artery calcification. Calcifications of the aortic valve. Liver: The liver is normal in size. No focal lesions. Gallbladder and Biliary Tree: Unremarkable Spleen: Unremarkable Pancreas: The pancreas is grossly normal in appearance. Adrenal Glands: Unremarkable Kidneys: Punctate nonobstructing left renal calculus Bladder: There is diffuse bladder wall thickening measuring 5-6 mm. This may be due to poor urinary d istention or infection Bowel: The stomach is grossly normal in appearance. Small bowel and colon are normal in caliber and d istribution. The appendix is not visualized; however, no secondary findings of acute appendicitis id entified. Ascites: Absent Lymphadenopathy: No mesenteric, retroperitoneal or periportal lymphadenopathy. Abdominal Wall and Mesentery: Unremarkable. Vasculature: The visualized abdominal aorta is normal in size and caliber. Evaluation of abdominal a nd pelvic vessels is limited due to lack of intravenous contrast. Pelvic Organs: Prostate measures 6 x 4.8 cm Musculoskeletal: No aggressive focal bony lesions, acute fractures or dislocation. Sternal wire sutur es and Soft tissues: Unremarkable IMPRESSION: 1. Punctate nonobstructing left renal calculus. 2. Prostate measures 6 x 5 cm 3. Diffuse thickening of the bladder wall measuring 5-6 mm. This may be due to poor urinary distentio n or infection. Radiation optimization: All CT scans at this facility use at least one of these dose optimization te chniques: automated exposure control mA and/or kV adjustment per patient size (includes targeted exa ms where dose is matched to clinical indication) or iterative reconstruction.
[2024-05-29 22:34] LABS: Alanine Aminotransferase 25 U/L (7-40); Albumin 4.3 g/dL (3.2-4.8); Alkaline Phosphatase 94 U/L (46-116); Anion Gap 9 (5-15); Aspartate Aminotransferase 13 U/L (13-40); BUN/Creatinine Ratio 17.2 (10.0-20.0); Bilirubin, Total 0.3 mg/dL (0.2-1.0); Calcium 9.7 mg/dL (8.7-10.4); Carbon Dioxide 22 mmol/L (20-31); Magnesium 2.5 mg/dL (1.6-2.6); Potassium 5.1 mmol/L (3.5-5.1); Sodium 141 mmol/L (136-145)
[2024-05-29 22:35] LABS: Band Neutrophils % (manual) 0; Basophils % (manual) 0 (0.0-2.0); Blast Cells 0; Eosinophils % (manual) 0 (0-7); Metamyelocytes % 0; Myelocytes % 0; Promyelocytes % 0; Reactive Lymphocytes 0; Total Protein 7.2 g/dL (5.7-8.2)
[2024-05-29 22:39] LABS: Blood Urea Nitrogen 46 mg/dL (9-23); Chloride 110 mmol/L (98-107); Glucose 152 mg/dL (74-106)
[2024-05-29 22:47] LABS: Urine Bacteria MOD /hpf (None Seen); Urine Blood 3+ /uL (Negative); Urine Clarity Ex.Turbid (Clear); Urine Color Light-Brown (Yellow); Urine Mucus FEW (None Seen); Urine Protein, UAD 2+ (Negative); Urine Specific Gravity 1.015 (1.001-1.035); Urine Urobilinogen Normal (Negative); Urine WBC 741 /hpf (0 - 3); Urine WBC Clumps PRESENT /hpf (None Seen); Urine pH 5.5 (5.0-9.0)
[2024-05-29 23:05] LABS: Lymphocytes % (manual) 15 (10.0-50.0); Monocytes % (manual) 12 (0-12); Platelet Estimate Adequate
[2024-05-29] MEDS ORDERED: TAMS-35 PO (23:53)
[2024-05-29] MEDS ORDERED: BACDST PO (23:53)
[2024-05-29] MEDS ORDERED: ACET650T12 PO (23:53)
[2024-05-30] MEDS: TAMSULOSIN HYDROCHLORIDE 0.4 MG CAP PO ONE (00:09)
[2024-05-30] MEDS: SULFAMETHOX W/TRIMETH(800/160MG) DS TAB PO ONE (00:09)
[2024-05-30 00:12] VITALS: BP 116/57; PULSE 77; RESP 17; O2SAT 96
[2024-05-30 00:13] VITALS: TEMP 98
== END 2024-05-30 00:19 | disposition home or self-care (01) ==
LOC: ER 21:15
DX: N20.0 Calculus of kidney (principal); N39.0 Urinary tract infection, site not specified; R51.9 Headache, unspecified; I10 Essential (primary) hypertension; E11.9 Type 2 diabetes mellitus without complications; I25.2 Old myocardial infarction; E78.5 Hyperlipidemia, unspecified; Z95.1 Presence of aortocoronary bypass graft; Z98.890 Other specified postprocedural states; Z79.01 Long term (current) use of anticoagulants; Z79.82 Long term (current) use of aspirin; Z79.84 Long term (current) use of oral hypoglycemic drugs; Z79.85 Long-term (current) use of injectable non-insulin antidiabetic drugs; Z79.899 Other long term (current) drug therapy
CPT/HCPCS: 36415; 70450; 74176; 80053; 81001; 83735; 85007; 85027

== ENCOUNTER 2025-02-17 07:17 | Inpatient (IN) | payer OTHER, MEDICAID ==
[~2025-02-17] VITALS: Ht 160 cm; Wt 74.1 kg
[~2025-02-17 07:17] MED LIST changes: +ACET650T12 PO; +BACDST PO; +TAMS-35 PO
[2025-02-17] MEDS: CARVEDILOL 3.125 MG TAB PO ONE (08:00)
[2025-02-17] MEDS: SACUBITRIL-VALSARTAN 24mg/26mg TAB PO STA (08:09)
[2025-02-17 08:23] LABS: Hematocrit 39.1 % (41.0-53.0); Hemoglobin 13.4 g/dL (13.5-17.5); Mean Corpuscular Hemoglobin 29.8 pg (28.0-32.0); Mean Corpuscular Volume 86.8 fL (80.0-100.0); Nucleated Red Blood Cells % 0.1 %
[2025-02-17 08:36] LABS: Chloride 103 mmol/L (98-107); Sodium 138 mmol/L (136-145)
[2025-02-17 08:37] LABS: Anion Gap 9 (5-15); Carbon Dioxide 26 mmol/L (20-31)
[2025-02-17 08:38] LABS: Calcium 9.1 mg/dL (8.7-10.4)
[2025-02-17 08:42] LABS: BUN/Creatinine Ratio 14.7 (10.0-20.0)
[2025-02-17 08:45] LABS: Blood Urea Nitrogen 35 mg/dL (9-23); Glucose 262 mg/dL (74-106); Potassium 5.2 mmol/L (3.5-5.1)
[2025-02-17 08:46] LABS: Urine Protein, UAD 2+ (Negative)
--- NOTE | 2025-02-17 09:09 | ED.PDOC ---
Musculoskeletal HPI Comments This is a pleasant 70-year-old male with extensive MHx that presents with right great toe pain. He has been experiencing pain in the right great toe since November after a toenail was cut leading to pain and bleeding. He noticed color changes and redness around the toe starting about a week and a half ago. Has not tried medications for the symptoms noted above. Chief Complaint: Wound Check Time Seen by MD: 07:23 Primary Care Provider: LYNNE Reviewed Notes: Nurses Notes, Medications, Allergies Allergies: Coded Allergies: NO KNOWN ALLERGIES (Unverified , 11/16/12) Home Meds Active Scripts Atorvastatin Calcium (Lipitor) 40 Mg Tab, 40 MG PO HS for 30 Days, #30 TAB Prov:ANTHONY DURAND RESIDENT 02/20/25 Doxycycline (Monohydrate) (Doxycycline) 100 Mg Cap, 100 MG PO BID for 30 Days, #60 CAP Prov:ANTHONY DURAND [facility] 02/20/25 Cefpodoxime Proxetil (Cefpodoxime Proxetil) 200 Mg Tab, 200 MG PO BID for 30 Days, #60 TAB Prov:ANTHONY DURAND [facility] 02/20/25 Sulfamethoxazole W/Trimethopri (Bactrim Ds Tablet) 1 Tab Tb, 1 TAB PO BID for 7 Days, #14 TAB Prov:ROLANDA RUSH MD 05/29/24 Tamsulosin Hcl (Flomax) 0.4 Mg Cap, 0.4 MG PO DAILY for 7 Days, #7 CAP Prov:ROLANDA RUSH MD 05/29/24 Acetaminophen (Acetaminophen Er) 650 Mg Tab, 650 MG PO TID PRN for 5 Days, #15 TAB Prov:ROLANDA RUSH MD 05/29/24 Amiodarone Hcl (Amiodarone Hcl) 200 Mg Tab, 200 MG PO BID, #180 TAB Prov:MARYBETH TEAGUE MD 04/18/22 Apixaban Base (ELIQUIS) 5 Mg Tab, 5 MG PO BID, #180 TAB Prov:MARYBETH TEAGUE MD 04/18/22 Reported Medications Aspirin (Aspir-81) 81 Mg Tab, 1 TAB PO DAILY, #30 TAB 5 Refills 02/17/25 Insulin Glargine (Basaglar Kwikpen) 100 Unit/Ml Inj, 50 UNIT SC DAILY 02/17/25 Tamsulosin Hcl (Tamsulosin Hcl) 0.4 Mg Cap, 1 CAP PO DAILY 02/17/25 Ergocalciferol (Vitamin D) 50,000 Unit Cap, 1 CAP PO QWEEKLY 02/17/25 Sodium Bicarbonate (Sodium Bicarbonate) 650 Mg Tab, 1 TAB PO 02/17/25 Carvedilol (Carvedilol) 3.125 Mg Tab, 1 TAB PO BID 02/17/25 Latanoprost (LATANOPROST) 0.005 % Kaitlin, EACHEYE 02/17/25 Ferrous Sulfate (Ferosul) 325 Mg Tab, 1 TAB PO DAILY 02/17/25 Finasteride (Finasteride) 5 Mg Tab, 1 TAB PO DAILY 02/17/25 Dulaglutide (Trulicity) 0.75 Mg/0.5 Ml Inj, 0.75 MG SC, INJ 04/14/22 Canagliflozin (INVOKANA) 100 Mg Tab, PO DAILY, TAB 01/28/17 [pravastatin] No Conflict Check, 40 MG PO HS 11/22/12 Hydrocodone-Acetaminophen ([place] 5/325MG) 1 Tab Tb, 1 TAB GT TIDP 11/22/12 Gabapentin (GABAPENTIN) 250 Mg/5 Ml Kaitlin, 300 MG PO TID 11/22/12 Aspirin (EQ ASPIRIN ADULT LOW DOSE) 81 Mg Tab, 81 MG PO DAILY 11/22/12 Cholecalciferol (VITAMIN D) 2,000 Unit Tab, 5000 UNIT PO QWEEKLY 11/22/12 Glimepiride (Amaryl) 4 Mg Tab, 4 MG PO BIDWM 11/22/12 Metformin Hydrochloride (Metformin Hcl) 1,000 Mg Tab, 2000 MG PO BIDAC 11/22/12 Discontinued Reported Medications Lovastatin (Lovastatin) 40 Mg Tab, 1 TAB PO 02/17/25 Sacubitril-Valsartan (Entresto 24-26 mg) 1 Tab Tab, 1 TAB PO BID 02/17/25 Losartan Potassium (Losartan Potassium) 100 Mg Tab, 100 MG PO DAILY 11/22/12 Information Source: Patient Mode of Arrival: Ambulatory Past Medical History PAST MEDICAL HISTORY: DM, High Lipids, HTN, NV Surgical History: CABG, Unknown Family History Family History: Reviewed,noncontributory to illness Social History Smoker: Non-Smoker Alcohol: Denies ETOH Use Drugs: Denies Drug Use Lives In: Home Physical Exam General Appearance: No Apparent Distress, Normal HEENT: Normal ENT Inspection, Pharynx Normal, TMs Normal Neck: Full Range of Motion, Non-Tender, Normal, Normal Inspection Respiratory: Chest Non-Tender, Lungs Clear, No Accessory Muscle Use, No Respiratory Distress, Normal Breath Sounds Cardiovascular: No Edema, No JVD, No Murmur, No Gallop, Normal Peripheral Pulses, Regular Rate/Rhythm Breast Exam: Deferred Gastrointestinal: No Organomegaly, Non Tender, No Pulsatile Mass, Normal Bowel Sounds, Soft Genitalia: Deferred Pelvic: Deferred Rectal: Deferred Extremities: No calf tenderness, Normal capillary refill, Normal inspection, Normal range of motion, Non-tender, No pedal edema Musculoskeletal : Apperance: Normal Neurologic: Alert, pressure tester operator II-XII nml as Tested, No Motor Deficits, Normal Affect, Normal Mood, No Sensory Deficits Cerebellar Function: Normal Reflexes: Normal Skin: Dry, Normal Color, Warm Lymphatic: No Adenopathy Was a procedure done? Was a procedure done?: No Images 1 - Erythema mild TTP. Drainage to the medial aspect of the right great toe. Cap refill less than three and neurovascular sensation is intact Differential Diagnosis EXT Differential Diagnosis: Cellulitis, Sprain, Arthritis, Other X-Ray, Labs, Meds, VS Vital Signs Date Time Temp Pulse Resp B/P (MAP) Pulse Ox O2 Delivery O2 Flow Rate FiO2 02/17/25 10:40 79 18 95 Room Air 02/17/25 10:40 79 18 159/85 (109) 95 02/17/25 10:00 79 159/85 02/17/25 08:00 88 205/96 02/17/25 07:20 97.8 77 18 184/99 96 97.8 Lab Test 02/17/25 11:10 02/17/25 08:22 02/17/25 08:10 Range/Units Lactic Acid Level 1.3 0.4-2.0 mmol/L Urine Color Light-yellow Yellow Urine Clarity Clear Clear Urine pH 6.0 5.0-9.0 Urine Specific Gay 1.011 1.001-1.035 Urine Protein 2+ H Negative Urine Ketones Negative Negative Urine Blood Trace H Negative /uL Urine Nitrite Negative Negative Urine Bilirubin Negative Negative Urine Urobilinogen Normal Negative mg/dL Urine Leukocyte Esterase Negative Negative /uL Urine RBC 3 0 - 3 /hpf Urine Microscopic WBC 1 0-3 /HPF Urine Squamous Epithelial Cells None seen <5 /hpf Urine Bacteria Few H None Seen /hpf Urine Glucose 4+ H Normal mg/dL Urine Opiates Screen Neg NEGATIVE Urine Fentanyl Screen Neg NEGATIVE Urine Barbiturates Screen Neg NEGATIVE Urine Phencyclidine Screen Neg NEGATIVE Urine Amphetamines Screen Neg NEGATIVE Urine Benzodiazepines Screen Neg NEGATIVE Urine Cocaine Screen Neg NEGATIVE Urine Cannabinoids Screen Neg NEGATIVE White Blood Count 6.5 4.4-10.8 10^3/uL Red Blood Count 4.50 4.5-5.90 10^6/uL Hemoglobin 13.4 L 13.5-17.5 g/dL Hematocrit 39.1 L 41.0-53.0 % Mean Corpuscular Volume 86.8 80.0-100.0 fL Mean Corpuscular Hemoglobin 29.8 28.0-32.0 pg Mean Corpuscular Hemoglobin Concent 34.3 32.0-36.0 g/dL Red Cell Distribution Width 13.5 11.8-14.3 % Platelet Count 234 140-450 10^3/uL Mean Platelet Volume 8.8 6.9-10.8 fL Neutrophils (%) (Auto) 61.0 37.0-80.0 % Lymphocytes (%) (Auto) 27.0 10.0-50.0 % Monocytes (%) (Auto) 8.7 0.0-12.0 % Eosinophils (%) (Auto) 2.4 0.0-7.0 % Basophils (%) (Auto) 0.9 0.0-2.0 % Neutrophils # (Auto) 4.0 1.6-8.6 10 ^3/uL Lymphocytes # (Auto) 1.8 0.4-5.4 10 ^3/uL Monocytes # (Auto) 0.6 0-1.3 10 ^3/uL Eosinophils # (Auto) 0.2 0-0.8 10 ^3/uL Basophils # (Auto) 0.1 0-0.2 10 ^3/uL Nucleated Red Blood Cells 0.1 % Erythrocyte Sedimentation Rate 50 H 0-20 mm/hr Sodium Level 138 136-145 mmol/L Potassium Level 5.2 H 3.5-5.1 mmol/L Chloride Level 103 98-107 mmol/L Carbon Dioxide Level 26 20-31 mmol/L Anion Gap 9 5-15 Blood Urea Nitrogen 35 H 9-23 mg/dL Creatinine 2.38 H 0.700-1.30 mg/dL Glomerular Filtration Rate Calc 29 >90 mL/min BUN/Creatinine Ratio 14.7 10.0-20.0 Serum Glucose 262 H 74-106 mg/dL Hemoglobin A1c 10.7 H <5.7 % A1C Calcium Level 9.1 8.7-10.4 mg/dL Magnesium Level 1.9 1.6-2.6 mg/dL Total Bilirubin 0.4 0.2-1.0 mg/dL Direct Bilirubin < 0.1 <0.3 mg/dL Aspartate Amino Transferase (AST) 14 13-40 U/L Alanine Aminotransferase (ALT) 17 7-40 U/L Alkaline Phosphatase 115 46-116 U/L C-Reactive Protein High Sensitivity 0.58 <1.0 mg/dL B-Type Natriuretic Peptide 194.09 0-100 pg/mL Total Protein 7.1 5.7-8.2 g/dL Albumin 4.2 3.2-4.8 g/dL Microbiology Date/Time Source Procedure Growth Status 02/17/25 11:10 Blood Blood Culture - Final NO GROWTH AFTER 5 DAYS OF INCUBATION. Complete 02/17/25 11:00 Blood Blood Culture - Final NO GROWTH AFTER 5 DAYS OF INCUBATION. Complete PATIENT: WILY WEEKST: [id number]: [id number] : 1955 LOC: ER ROOM / BED: / AGE / SEX: 70 / M ADM STATUS: REG ER SERVICE [id number] ORDERING PHYSICIAN: DUY CHRISTIANSON NP PROCEDURE(s): RFTCT - CT R FOOT WO CONTRAST REASON: Infection to R great toe ORDER NUMBER(s): [id number], ACCESSION NUMBER(s): [id number] CLINICAL INDICATION: Infection to R great toe TECHNIQUE: Noncontrast CT of the right foot was performed. Sagittal and coronal reformatted images are provided. COMPARISON: None CT Dose: CTDI volume is 7.8 mGy. Dose-length product is 169.9 mGy*cm FINDINGS: There is cortical disruption along the dorsal aspect of the 1st distal phalanx compatible with osteomyelitis. There is overlying soft tissue swelling reflecting cellulitis. No acute fracture or dislocation. There are hammertoe deformities. 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 Soft tissue swelling in the forefoot. IMPRESSION: 1. Osteomyelitis in the 1st distal phalanx. 2. 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 3. Cellulitis. All CT scans at this medical facility are performed using dose modulation techniques as appropriate to a performed exam including the following: Automated exposure control was utilized; adjustment of the MA and/or KV according to patient size; and use of iterative reconstruction technique. ATED BY: NISA REEVES MD DICTATED DATE/TIME: 02/17/25 1016 SIGNED BY: NISA REEVES MD SIGNED DATE/TIME: 02/17/25 1016 CC: X-Ray, Labs, Meds, VS Comment Patient arrives alert and oriented, ABC's intact, afebrile, vital signs stable, saturating well in room air Peripheral IV insertion+ labs were ordered. CBC was ordered to exclude anemia, blood loss, or infection. BMP was ordered to exclude electrolyte abnormalities, renal failure, dehydration, hyperglycemia Urinalysis was ordered to rule out UTI or hematuria. Urine glucose 4+ hemoglobin 13.4, sodium 138, potassium 5.2, creatinine 2.38, GFR 29, serum glucose 262 Diagnostic imaging ordered by me and results interpreted by radiology : 1. Osteomyelitis in the 1st distal phalanx. 2. 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 3. Cellulitis. Sed rate CRP, lactic acid, blood cultures chest x-ray ordered Patients work up was remarkable for osteomyelitis in the 1st distal phalanx and cellulitis The patient's workup reveals that the patient needs further evaluation and/or treatment for the above medical conditions. Patient verbalized understanding of the above and is awaiting further evaluation by the admitting service. Time of 1ST Reevaluation: 10:37 Reevaluation 1ST: Unchanged Patient Education/Counseling: Diagnosis, Treatment Family Education/Counseling: Diagnosis, Treatment Sepsis Sepsis Reasesment Focused Exam Orders: Laboratory Tests 02/17/25 11:10: Lactic Acid Level 1.3 Departure 1 Departure Time of Disposition: 10:42 Impression: Primary Impression: Osteomyelitis Qualified Codes: M86.9 - Osteomyelitis, unspecified Additional Impressions: Cellulitis Qualified Codes: L03.031 - Cellulitis of right toe CKD (chronic kidney disease) Qualified Codes: N18.4 - Chronic kidney disease, stage 4 (severe) Diabetes Qualified Codes: E11.22 - Type 2 diabetes mellitus with diabetic chronic kidney disease; N18.4 - Chronic kidney disease, stage 4 (severe) Disposition: ADMITTED INPATIENT Condition: Serious e-Prescriptions Atorvastatin Calcium (Lipitor) 40 Mg Tab 40 MG PO HS for 30 Days, #30 TAB [facility]/25 Doxycycline (Monohydrate) (Doxycycline) 100 Mg Cap 100 MG PO BID for 30 Days, #60 CAP Prov: LADARIUS,[facility] 02/20/25 Cefpodoxime Proxetil (Cefpodoxime Proxetil) 200 Mg Tab 200 MG PO BID for 30 Days, #60 TAB [facility] 02/20/25 Critical Care Note Critical Care Time?: No Stability Stability form required: No Heart Score Heart Score: Heart Score Response (Comments) Value History N/A 0 EKG N/A 0 Age N/A 0 Risk Factors N/A 0 Troponin N/A 0 Total 0 DUY CHRISTIANSON NP Feb 17, 2025 09:09
[2025-02-17] MEDS: cefTRIAXone SOD 1,000 MG VL IM ONE (09:24)
[2025-02-17] MEDS ORDERED: SACUBITRIL-VALSARTAN 24mg/26mg TAB PO ONE (10:00)
--- NOTE | 2025-02-17 10:18 | DVH ---
CLINICAL INDICATION: Infection to R great toe TECHNIQUE: Noncontrast CT of the right foot was performed. Sagittal and coronal reformatted images ar e provided. COMPARISON: None CT Dose: CTDI volume is 7.8 mGy. Dose-length product is 169.9 mGy*cm FINDINGS: There is cortical disruption along the dorsal aspect of the 1st distal phalanx compatible w ith osteomyelitis. There is overlying soft tissue swelling reflecting cellulitis. No acute fracture or dislocation. There are hammertoe deformities. 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 Soft tissue swelling in the for efoot. IMPRESSION: 1. Osteomyelitis in the 1st distal phalanx. 2. 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 3. Cellulitis. All CT scans at this medical facility are performed using dose modulation techniques as appropriate t o a performed exam including the following: Automated exposure control was utilized; adjustment of th e MA and/or KV according to patient size; and use of iterative reconstruction technique.
[2025-02-17] MEDS ORDERED: VANCOMYCIN PER PHARMACY 0 MG IV SCH (10:45)
--- NOTE | 2025-02-17 11:00 | DVH ---
CHEST RADIOGRAPH Indication: Pneumonia Technique: Frontal and lateral view of the chest was obtained Comparison: XY CHEST PORTABLE on DOS: 02/09/23, CXR2 on DOS: 04/11/22, CHEST TWO VIEWS ROUTINE on DOS: 04/11/22 FINDINGS: Lines and Tubes: Median sternotomy Lungs: Clear Pleura: No effusion. No pneumothorax. Cardiomediastinal contours: Unremarkable Bones: Unremarkable IMPRESSION: No evidence of acute disease.
[2025-02-17] MEDS: VANCOMYCIN 1GM/250ML KIT 250 ML IV ONE (12:04)
[2025-02-17] MEDS ORDERED: NITROGLYCERIN 0.4 MG SL TAB SL PRN (13:45)
[2025-02-17] MEDS ORDERED: ACETAMINOPHEN 325 MG TAB PO PRN (13:45)
[2025-02-17] MEDS ORDERED: MORPHINE SULFATE INJ 2 MG/ml SYRG IV PRN ×2 (13:45)
[2025-02-17] MEDS ORDERED: DEXTROSE (50%) 50ML SYRG IV PRN (15:00)
--- NOTE | 2025-02-17 15:05 | DVHHPRES ---
History of Present Illness Resident Creating Document: YOLETTE HIDALGO RESIDENT History of Present Illness This is a 70-year-old man with extensive medical history of diabetes, hypertension, glaucoma, hyperlipidemia, prostatomegaly who presented to the ER with right great toe pain. He states that he went to his foot doctor 3 months back where his right great toenails was cut incorrectly causing pain and bleeding and could have led to the symptoms that he has currently. He mentions that he was on antibiotics for a UTI which could have been the reason that his toenail infection got masked. He started experiencing pain and redness on the right grade 2 about a week and a half ago. It started turning purple 1 week ago. There was no fever or chills associated with it. The patient tried using salt with hot water and vinegar but it did not relieve the symptoms. CT of the right foot showed osteomyelitis and cellulitis of the great toe. Past medical history: Diabetes mellitus type 2, hypertension, CHF with reduced ejection fraction, BPH, glaucoma, CKD stage 3 Past surgical history: CABG in 2013 Social & Personal history: Lives at home with family Allergies: No known allergies Patient seen and examined at bedside. Patient is alert and oriented to time, place person and responding to all questions. In mild distress due to pain in his right great toe. Eyes: No Pain, No Vision change, No Conjunctivae inflammation, No Eyelid inflammation, No Redness ENT: No Ear pain, No Ear discharge, No Nose pain, No Nose discharge, No Nose congestion, No Mouth pain, No Mouth swelling, No Throat pain, No Throat swelling Cardiovascular: No Chest Pain, No Palpitations, No Orthopnea, No Paroxysmal No Dyspnea, No Edema, No Lt Headedness Respiratory: No Cough, No Dry, No Shortness of breath, No SOB with exertion, No Wheezing, No Hemoptysis, No Pleuritic Pain, No Sputum Gastrointestinal: No Nausea, No Vomiting, No Abdominal Pain, No Diarrhea, No Constipation, No Melena, No Hematochezia Genitourinary: No Dysuria, No Frequency, No Incontinence, No Hematuria, No Retention Cardiovascular: CAD, HTN, hyperipidemia Renal/: Chronic renal failure Endocrine: Diabetes Past Surgical History: CABG Lives: with Family Review of Systems Allergies: Coded Allergies: NO KNOWN ALLERGIES (Unverified , 11/16/12) Medications Current Medications Medications Dose Ordered Sig/Linda Route Start Time Stop Time Status Last Admin Dose Admin Vancomycin HCl 0 ml @ 0 mls/hr UD IV 02/17/25 10:45 Acetaminophen 325 mg Q4HP PRN PO 02/17/25 13:45 Enoxaparin Sodium 30 mg DAILY SC 02/18/25 10:00 Morphine Sulfate 2 mg Q4HPRN PRN IV 02/17/25 13:45 Nitroglycerin 0.4 mg Q5MINP PRN SL 02/17/25 13:45 Morphine Sulfate 2 mg Q30M PRN IV 02/17/25 13:45 Exam Vital Signs Vital Signs Date Time Temp Pulse Resp B/P (MAP) Pulse Ox O2 Delivery O2 Flow Rate FiO2 02/17/25 10:40 79 18 95 Room Air 02/17/25 10:40 159/85 (109) 02/17/25 07:20 97.8 97.8 Exam General Appearance: Cooperative. Well developed. Well nourished. NAD Head Exam: Normal inspection Neck Exam: Normal inspection. Non-tender. Normal alignment Pulmonary/Respiratory: Chest non-tender. Clear bilateral breath sounds, no crackles, no wheezing. Cardiovascular/Chest: Regular rate and rhythm. No murmurs. No JVD. Peripheral Pulses: 2+ Radial (R). 2+ Radial (L). 1+ Pedal (R), reduced pedal pulses in the right foot 2+ Pedal (L) Abdominal Exam: Normal bowel sounds. Soft. normal abdomen, no visible veins, Nontender. No hepatospenomegaly. No masses Ankle Exam: Negative ankle edema Lower extremities: Swelling of the right great toe with erythema and purplish discoloration , Negative lower extremity edema Neuro/Mental Status: A&O x4. Coherent. Thoughts/Psych: Normal thought pattern. Appropriate mood and affect. Good judgement and insight Skin Exam: Normal inspection. Normal color. Warm. Dry Labs/Xrays Labs Test 02/17/25 11:10 02/17/25 08:22 02/17/25 08:10 Range/Units Lactic Acid Level 1.3 0.4-2.0 mmol/L Urine Color Light-yellow Yellow Urine Clarity Clear Clear Urine pH 6.0 5.0-9.0 Urine Specific [place] 1.011 1.001-1.035 Urine Protein 2+ H Negative Urine Ketones Negative Negative Urine Blood Trace H Negative /uL Urine Nitrite Negative Negative Urine Bilirubin Negative Negative Urine Urobilinogen Normal Negative mg/dL Urine Leukocyte Esterase Negative Negative /uL Urine RBC 3 0 - 3 /hpf Urine Microscopic WBC 1 0-3 /HPF Urine Squamous Epithelial Cells None seen <5 /hpf Urine Bacteria Few H None Seen /hpf Urine Glucose 4+ H Normal mg/dL White Blood Count 6.5 4.4-10.8 10^3/uL Red Blood Count 4.50 4.5-5.90 10^6/uL Hemoglobin 13.4 L 13.5-17.5 g/dL Hematocrit 39.1 L 41.0-53.0 % Mean Corpuscular Volume 86.8 80.0-100.0 fL Mean Corpuscular Hemoglobin 29.8 28.0-32.0 pg Mean Corpuscular Hemoglobin Concent 34.3 32.0-36.0 g/dL Red Cell Distribution Width 13.5 11.8-14.3 % Platelet Count 234 140-450 10^3/uL Mean Platelet Volume 8.8 6.9-10.8 fL Neutrophils (%) (Auto) 61.0 37.0-80.0 % Lymphocytes (%) (Auto) 27.0 10.0-50.0 % Monocytes (%) (Auto) 8.7 0.0-12.0 % Eosinophils (%) (Auto) 2.4 0.0-7.0 % Basophils (%) (Auto) 0.9 0.0-2.0 % Neutrophils # (Auto) 4.0 1.6-8.6 10 ^3/uL Lymphocytes # (Auto) 1.8 0.4-5.4 10 ^3/uL Monocytes # (Auto) 0.6 0-1.3 10 ^3/uL Eosinophils # (Auto) 0.2 0-0.8 10 ^3/uL Basophils # (Auto) 0.1 0-0.2 10 ^3/uL Nucleated Red Blood Cells 0.1 % Erythrocyte Sedimentation Rate 50 H 0-20 mm/hr Sodium Level 138 136-145 mmol/L Potassium Level 5.2 H 3.5-5.1 mmol/L Chloride Level 103 98-107 mmol/L Carbon Dioxide Level 26 20-31 mmol/L Anion Gap 9 5-15 Blood Urea Nitrogen 35 H 9-23 mg/dL Creatinine 2.38 H 0.700-1.30 mg/dL Glomerular Filtration Rate Calc 29 >90 mL/min BUN/Creatinine Ratio 14.7 10.0-20.0 Serum Glucose 262 H 74-106 mg/dL Calcium Level 9.1 8.7-10.4 mg/dL C-Reactive Protein High Sensitivity 0.58 <1.0 mg/dL SEPSIS Sepsis Screen Date sepsis recognized/suspect: Feb 17, 2025 Time Sepsis recognized/suspect: 719 Recent Procedure: No On Antibiotic Therapy: No Respiratory Rate >20: No Heart Rate >90: No Temp<36 C (96.8 F) or >38.3 C: No SBP <90 or MAP <65 mmHG: No New Acute Mental Status Change: No Is the patient on CPAP, BIPAP,: No Physician Orders Ct R Foot Wo Contrast (02/17/25 09:28) Blood Culture (02/17/25 10:30) Chest Two Views Routine (02/17/25 10:30) Vancomycin Per Pharmacy (02/17/25 10:45) Vancomycin,Random (02/18/25 05:00) Vancomycin Per Pharmacy Protoc (02/17/25 11:47) Creatinine (02/18/25 05:00) Admit (02/17/25 13:45) Allergies (02/17/25 13:45) Code Status (02/17/25 13:45) Renal Standard(2gna,3gk,Lopho) (02/17/25 Dinner) Acetaminophen Tablet (Tylenol Tablet) (02/17/25 13:45) Condition: Fair (02/17/25 13:45) Enoxaparin Sodium (Lovenox) (02/18/25 10:00) Morphine Sulfate Injection (02/17/25 13:45) Nitroglycerin Sublingual (Ntrostat Subli (02/17/25 13:45) Morphine Sulfate Injection (02/17/25 13:45) Oxygen By Nasal Cannula (02/17/25 13:45) Stat Ekg For Chest Pain (02/17/25 13:45) Notify Md Of Changes From Base (02/17/25 13:45) Reverse Unit Operator Fisherman For 24 Hours (02/17/25 13:45) Emergency Dysrhythmia Protocol (02/17/25 13:45) Rhythm Strips Once Every Shift (02/17/25 13:45) Consult Vascular/Endovascular (02/17/25 14:34) Bilat Low Ext Art Duplex (02/17/25 14:34) Vital Signs Date Time Temp Pulse Resp B/P (MAP) Pulse Ox O2 Delivery O2 Flow Rate FiO2 02/17/25 10:40 79 18 95 Room Air 02/17/25 10:40 79 18 159/85 (109) 95 02/17/25 10:00 79 159/85 02/17/25 08:00 88 205/96 02/17/25 07:20 97.8 77 18 184/99 96 97.8 Laboratory Tests Test 02/17/25 08:10 02/17/25 11:10 White Blood Count 6.5 10^3/uL (4.4-10.8) Lactic Acid Level 1.3 mmol/L (0.4-2.0) Medications Medications Dose Ordered Sig/Linda Route Start Time Stop Time Status Last Admin Dose Admin Carvedilol 3.125 mg ONCE ONCE PO 02/17/25 07:45 02/17/25 07:53 DC 02/17/25 08:00 3.125 MG Ceftriaxone Sodium 1,000 mg ONCE ONCE IM 02/17/25 09:15 02/17/25 09:16 DC 02/17/25 09:24 1,000 MG Sacubitril/ Valsartan 1 tab ONCE STAT PO 02/17/25 08:03 02/17/25 08:06 DC 02/17/25 08:09 1 TAB Vancomycin HCl 250 ml @ 250 mls/hr ONCE ONCE IV 02/17/25 11:00 02/17/25 11:59 DC 02/17/25 12:04 250 MLS/HR Assessment/Plan Assessment/Plan Osteomyelitis of great toe of right foot Cellulitis of right great toe Admit med surg CT showed osteomyelitis and cellulitis changes in the 1st distal phalanx Consulted surgery Started IV antibiotic vancomycin and cefazolin Possible PAD Ordered Bilateral arterial Doppler Hyperkalemia Monitor labs for now Diabetes mellitus type 2, uncontrolled Mild Insulin sliding scale Lantus 20 units at night HbA1c pending Hypertensive urgency Continue home medication losartan CHF with reduced ejection fraction 30%, not in exacerbation PUD prophylaxis: Not indicated DVT prophylaxis: Lovenox 30 mg subcutaneous Goals of care: Full code, discussed for >16 minutes on Plan discussed with patient Plan discussed with Dr. Mireles Plan discussed with: Patient My Orders Orders - YOLETTE HIDALGO RESIDENT Procedure Category Date Status Time Admit ADMIT 02/17/25 Transmitted 13:45 Allergies JIMENA 02/17/25 In Process 13:45 Code Status CODE 02/17/25 Transmitted 13:45 Renal DIET 02/17/25 Transmitted Standard(2gna,3gk,Lopho) Dinner Acetaminophen Tablet PHA 02/17/25 In Process (Tylenol Tablet) 13:45 Condition: Fair JIMENA 02/17/25 In Process 13:45 Enoxaparin Sodium PHA 02/18/25 In Process (Lovenox) 10:00 Morphine Sulfate PHA 02/17/25 In Process Injection 13:45 Nitroglycerin PHA 02/17/25 In Process Sublingual (Ntrostat 13:45 Morphine Sulfate PHA 02/17/25 In Process Injection 13:45 Oxygen By Nasal RT 02/17/25 Transmitted Cannula 13:45 Stat Ekg For Chest [facility] 02/17/25 In Process Pain 13:45 Notify Md Of Changes [facility] 02/17/25 In Process From Base 13:45 Reverse Unit Operator Fisherman For [facility] 02/17/25 In Process 24 Hours 13:45 Emergency Dysrhythmia [facility] 02/17/25 In Process Protocol 13:45 Rhythm Strips Once [facility] 02/17/25 In Process Every Shift 13:45 Consult CONS 02/17/25 Transmitted Vascular/Endovascular 14:34 Bilat Low Ext Art US 02/17/25 Logged Duplex 14:34 Date of Service: Feb 17, 2025 Billing Provider: TIFFANI GUTIERREZ MD Common Visit Codes: 19268-NOIBTGP INP/OBS CARE (HIGH) Secondary Visit Codes: [id number] CARE PLAN 30 MINUTES YOLETTE HIDALGO RESIDENT Feb 17, 2025 15:05 ANTHONY DURAND RESIDENT Feb 17, 2025 19:33 TIFFANI GUTIERREZ MD Feb 23, 2025 01:38
[2025-02-17 16:04] LABS: Alanine Aminotransferase 17 U/L (7-40); Albumin 4.2 g/dL (3.2-4.8); Alkaline Phosphatase 115 U/L (46-116); Bilirubin, Total 0.4 mg/dL (0.2-1.0); Magnesium 1.9 mg/dL (1.6-2.6); Total Protein 7.1 g/dL (5.7-8.2)
[2025-02-17 16:05] LABS: Bilirubin, Direct < 0.1 mg/dL (<0.3)
[2025-02-17 16:07] LABS: INR 0.95 (0.9-1.15); Partial Thromboplastin Time 25.6 SEC (24.5-34.5); Prothrombin Time 10.1 sec (9.3-11.8)
[2025-02-17] MEDS: ceFAZolin 1GM/50ML 50 ML IV SCH (16:37)
[2025-02-17] MEDS: ACCU-CHEK COMFORT CURVE STRIP VI SCH (17:30)
[2025-02-17] MEDS: InsuLIN REG 1unit/0.01ml Soln (100units/ml) SC SCH (17:33)
[2025-02-17 19:13] LABS: Amphetamine Screen, Urine Neg (NEGATIVE); Barbiturate Scree,Urine Neg (NEGATIVE); Benzodiazephine Screen, Urine Neg (NEGATIVE); Cannabinoid Screen, Urine Neg (NEGATIVE); Cocaine Screen, Urine Neg (NEGATIVE); Opiate Scree,Urine Neg (NEGATIVE); Phencyclidine Screen, Urine Neg (NEGATIVE)
--- NOTE | 2025-02-17 19:22 | DVH ---
BILATERAL Lower Extremity Arterial Duplex Date: 02/17/2025 03:19 PM Clinical History: peripheral arterial disease Comparison: None Technique: Duplex Doppler evaluation including color Doppler and spectral/pulsed waveform analysis of the lower extremity arteries was performed. Finding: RIGHT: Peak systolic velocities are as follows: NNP 90 cm/s triphasic waveform Deep femoral 101 cm/s triphasic waveform SFA proximal 75 cm/s biphasic waveform SFA mid-portion 66 cm/s biphasic SFA distal 101 cm/s biphasic Popliteal 52 cm/s biphasic Posterior tibial 85 cm/s biphasic Anterior tibial 139 cm/s monophasic greater than 50% stenosis Dorsalis pedis 20 cm/s monophasic The waveforms are triphasic and biphasic waveform throughout however [id number] monophasic wavefo rm is noted in the anterior tibial artery and dorsalis pedis. LEFT: Peak systolic velocities are as follows: NNP 161 cm/s triphasic waveform Deep femoral 200 cm/s biphasic waveform > 50% stenosis SFA proximal 152 cm/s biphasic waveform SFA mid-portion 52 cm/s biphasic waveform SFA distal 76 cm/s biphasic waveform Popliteal 98 cm/s biphasic waveform Posterior tibial 98 cm/s biphasic waveform Anterior tibial 71 cm/s monophasic waveform > 50% stenosis Dorsalis pedis 31 cm/s monophasic waveform The waveforms are biphasic and triphasic. REFERENCE VALUES, [facility] ([facility]) vascular Imaging Lab Criteria: Peak systolic velocity ranges (in cm/sec) are as follows: <150 cm/s - <20 % stenosis 150-200 cm/s - 20-49% stenosis 200-300 cm/s - 50-75% stenosis >300 cm/s -> 75% stenosis IMPRESSION: 1. Greater than 50% stenosis in the right anterior tibial artery. 2. Left lower extremity shows greater 50% stenosis in the left deep femoral artery. Greater than 50% stenosis in the left anterior tibial artery.
[2025-02-17 23:01] VITALS: PULSE 91; RESP 18; O2SAT 98
[2025-02-17 23:12] VITALS: BP 179/98; PULSE 93; RESP 18; TEMP 97.8; O2SAT 99
[2025-02-17] MEDS: AMIODARONE HCL 200 MG TAB PO SCH (23:47)
[2025-02-17] MEDS: CARVEDILOL 3.125 MG TAB PO SCH (23:48)
[2025-02-17] MEDS: APIXABAN 5 MG TAB PO SCH (23:48)
[2025-02-17] MEDS: INSULIN LANTUS (GLARGINE) 1 /0.01ml (100units/ml) SC SCH (23:49)
[2025-02-17] MEDS ORDERED: SODI650T PO (23:58)
[2025-02-17] MEDS ORDERED: FIN5T PO (23:58)
[2025-02-17] MEDS ORDERED: LOVA40TA72 PO (23:58)
[2025-02-17] MEDS ORDERED: SACU1TAB PO (23:58)
[2025-02-17] MEDS ORDERED: INSU1INJ19 SC (23:58)
[2025-02-17] MEDS ORDERED: TAMS0.4C39 PO (23:58)
[2025-02-17] MEDS ORDERED: FERR325T20 PO (23:58)
[2025-02-17] MEDS ORDERED: ERGO1CAP12 PO (23:58)
[2025-02-17] MEDS ORDERED: CARV3.1240 PO (23:58)
[2025-02-17] MEDS ORDERED: ASPI1TAB20 PO (23:58)
[2025-02-17] MEDS ORDERED: LATA0.008 EACHEYE (23:58)
[2025-02-18] VITALS (7 sets, daily range): BP systolic 110–182; BP diastolic 74–100; PULSE 72–92; RESP 18; TEMP 96.9–98.2; O2SAT 95–97
[2025-02-18] MEDS ORDERED: DEXTROSE (50%) 50ML SYRG IV PRN (00:30)
[2025-02-18] MEDS: ACCU-CHEK COMFORT CURVE STRIP VI SCH (03:55)
[2025-02-18] MEDS: InsuLIN REG 1unit/0.01ml Soln (100units/ml) SC SCH (03:55)
[2025-02-18 06:22] LABS: Potassium 4.5 mmol/L (3.5-5.1); Sodium 139 mmol/L (136-145)
[2025-02-18 06:23] LABS: Anion Gap 9 (5-15); Carbon Dioxide 23 mmol/L (20-31)
[2025-02-18 06:24] LABS: Hematocrit 34.5 % (41.0-53.0); Hemoglobin 11.8 g/dL (13.5-17.5); Mean Corpuscular Hemoglobin 29.8 pg (28.0-32.0); Mean Corpuscular Volume 86.8 fL (80.0-100.0); Nucleated Red Blood Cells % 0.0 %
[2025-02-18 06:28] LABS: BUN/Creatinine Ratio 15.8 (10.0-20.0)
[2025-02-18 06:32] LABS: Blood Urea Nitrogen 36 mg/dL (9-23); Calcium 8.2 mg/dL (8.7-10.4); Chloride 107 mmol/L (98-107); Glucose 181 mg/dL (74-106)
[2025-02-18] MEDS: ASPirin-EC 81 mg tab PO SCH (09:31)
[2025-02-18] MEDS ORDERED: ENOXAPARIN SOD 30 MG/0.3 ML SYRINGE SC SCH (10:00)
[2025-02-18] MEDS: VANCOMYCIN 1GM/250ML KIT 250 ML IV ONE (12:22)
--- NOTE | 2025-02-18 14:38 | DVHPNRES ---
Progress Note Date Seen: Feb 18, 2025 Resident Creating Document: YOLETTE HIDALGO RESIDENT Medical Necessity Reason Pt with a Central, PICC or Fol: No Subjective Review of Systems This is a 70-year-old man with extensive medical history of diabetes, hypertension, glaucoma, hyperlipidemia, prostatomegaly who presented to the ER with right great toe pain. He states that he went to his foot doctor 3 months back where his right great toenails was cut incorrectly causing pain and bleeding and could have led to the symptoms that he has currently. He mentions that he was on antibiotics for a UTI which could have been the reason that his toenail infection got masked. He started experiencing pain and redness on the right grade 2 about a week and a half ago. It started turning purple 1 week ago. There was no fever or chills associated with it. The patient tried using salt with hot water and vinegar but it did not relieve the symptoms. CT of the right foot showed osteomyelitis and cellulitis of the great toe. Past medical history: Diabetes mellitus type 2, hypertension, CHF with reduced ejection fraction, BPH, glaucoma,CKD stage 3 Past surgical history: CABG in 2013 Social & Personal history: Lives at home with family Allergies: No known allergies Patient seen and examined at bedside. Patient is alert and oriented to time, place person and responding to all questions. In mild distress due to pain in his right great toe. Eyes: No Pain, No Vision change, No Conjunctivae inflammation, No Eyelid inflammation, No Redness ENT: No Ear pain, No Ear discharge, No Nose pain, No Nose discharge, No Nose congestion, No Mouth pain, No Mouth swelling, No Throat pain, No Throat swelling Cardiovascular: No Chest Pain, No Palpitations, No Orthopnea, No Paroxysmal No Dyspnea, No Edema, No Lt Headedness Respiratory: No Cough, No Dry, No Shortness of breath, No SOB with exertion, No Wheezing, No Hemoptysis, No Pleuritic Pain, No Sputum Gastrointestinal: No Nausea, No Vomiting, No Abdominal Pain, No Diarrhea, No Constipation, No Melena, No Hematochezia Genitourinary: No Dysuria, No Frequency, No Incontinence, No Hematuria, No Retention Cardiovascular: CAD, HTN, hyperipidemia Renal/: Chronic renal failure Endocrine: Diabetes Past Surgical History: CABG Lives: with Family 02/18- The patient was seen at bedside today. Does not complain of any pain. His Lantus insulin was changed from to 20 units HS to 40 units HS bolus and from mild to moderate sliding scale insulin. His HbA1c is 10.7. Duplex arterial study of both the lower extremities showed more than 50% stenosis in the anterior tibial artery in the left deep femoral artery. Vascular surgery was consulted for the same, pending evaluation by them. Objective vital signs Vital Sign Date Time Temp Pulse Resp B/P (MAP) Pulse Ox O2 Delivery O2 Flow Rate FiO2 02/18/25 13:00 96.9 92 18 110/74 (86) 95 96.9 02/18/25 08:00 Room Air* 0 21 Total Intake and Output 02/17/25 02/17/25 02/18/25 15:00 23:00 07:00 Intake Total 50 ml 500 ml Balance 50 ml 500 ml medications Current Medications Medications Dose Ordered Sig/Linda Route Start Time Stop Time Status Last Admin Dose Admin Vancomycin HCl 0 ml @ 0 mls/hr UD IV 02/17/25 10:45 Acetaminophen 325 mg Q4HP PRN PO 02/17/25 13:45 Morphine Sulfate 2 mg Q4HPRN PRN IV 02/17/25 13:45 Nitroglycerin 0.4 mg Q5MINP PRN SL 02/17/25 13:45 Morphine Sulfate 2 mg Q30M PRN IV 02/17/25 13:45 Dextrose 50 ml UD PRN IV 02/17/25 15:00 Cefazolin Sodium 50 ml @ 100 mls/hr Q8HR IV 02/17/25 15:00 02/18/25 04:58 100 MLS/HR Amiodarone HCl 200 mg BID PO 02/17/25 22:00 02/18/25 09:31 200 MG Apixaban 5 mg BID PO 02/17/25 22:00 02/18/25 09:31 5 MG Aspirin 81 mg DAILY PO 02/18/25 10:00 02/18/25 09:31 81 MG Carvedilol 3.125 mg Q12HR PO 02/17/25 22:00 02/18/25 09:32 3.125 MG Hydralazine HCl 10 mg Q6HP PRN IV 02/17/25 15:15 Diagnostic Test (Pha) 1 strip IQ4HR 02/18/25 04:00 02/18/25 11:25 1 STRIP Insulin Human Regular IQ4HR [place] 02/18/25 04:00 02/18/25 11:25 9 UNITS Dextrose 50 ml UD PRN IV 02/18/25 00:30 Insulin Glargine 40 units HS [place] 02/18/25 22:00 UNV Examination General Appearance: Cooperative. Well developed. Well nourished. NAD Head Exam: Normal inspection Neck Exam: Normal inspection. Non-tender. Normal alignment Pulmonary/Respiratory: Chest non-tender. Clear bilateral breath sounds, no crackles, no wheezing. Cardiovascular/Chest: Regular rate and rhythm. No murmurs. No JVD. Peripheral Pulses: 2+ Radial (R). 2+ Radial (L). 1+ Pedal (R), reduced pedal pulses in the right foot 2+ Pedal (L) Abdominal Exam: Normal bowel sounds. Soft. normal abdomen, no visible veins, Nontender. No hepatospenomegaly. No masses Ankle Exam: Negative ankle edema Lower extremities: Swelling of the right great toe with erythema and purplish discoloration , Negative lower extremity edema Neuro/Mental Status: A&O x4. Coherent. Thoughts/Psych: Normal thought pattern. Appropriate mood and affect. Good judgement and insight Skin Exam: Normal inspection. Normal color. Warm. Dry laboratory and microbiology Laboratory Tests 02/18/25 05:20 Test 02/18/25 05:20 Range/Units Serum Glucose 181 H 74-106 mg/dL Microbiology Date/Time Source Procedure Growth Status 02/17/25 11:10 Blood Blood Culture - Preliminary NO GROWTH AFTER 24 HOURS OF INCUBATION. Resulted Labs and/or images reviewed: Labs reviewed by me, Image(s) reviewed by me Problem List/Assessment/Plan Problem List/Assessment/Plan Osteomyelitis of great toe of right foot Cellulitis of right great toe Admit med surg CT showed osteomyelitis and cellulitis changes in the 1st distal phalanx Consulted surgery Started IV antibiotic vancomycin and cefazolin Peripheral arterial disease Bilateral arterial Doppler-1. Greater than 50% stenosis in the right anterior tibial artery. 2. Left lower extremity shows greater 50% stenosis in the left deep femoral artery. Greater than 50% stenosis in the left anterior tibial artery. Hyperkalemia,resolved Monitor labs for now Diabetes mellitus type 2, uncontrolled moderate Insulin sliding scale Lantus 40 units at night HbA1c pending Hypertensive urgency coreg q12 CHF with reduced ejection fraction 30%, not in exacerbation PUD prophylaxis: Not indicated DVT prophylaxis: Lovenox 30 mg subcutaneous Goals of care: Full code, discussed for >16 minutes on Plan discussed with patient Plan discussed with Dr. Mireles Plan discussed with: Patient Plan discussed with: Patient My Orders My Orders Orders - YOLETTE HIDALGO Procedure Category Date Status Time Consult CONS 02/17/25 Transmitted Vascular/Endovascular 14:34 Bilat Low Ext Art US 02/17/25 Resulted Duplex 14:34 Insulin Lantus PHA 02/18/25 Logged (Glargine) (Lantus) 22:00 Date of Service: Feb 18, 2025 Billing Provider: TIFFANI GUTIERREZ MD Common Visit Codes: [id number] INP/OBS CARE(HIGH) YOLETTE HIDALGO RESIDENT Feb 18, 2025 14:38 ANTHONY DURAND RESIDENT Feb 18, 2025 16:13 TIFFANI GUTIERREZ MD Feb 23, 2025 00:29
[2025-02-18] MEDS: hydrALAZINE HCL 20 MG/ML VL IV PRN (17:52)
[2025-02-18] MEDS: INSULIN LANTUS (GLARGINE) 1 /0.01ml (100units/ml) SC SCH (21:58)
[2025-02-19] VITALS (7 sets, daily range): BP systolic 123–185; BP diastolic 68–93; PULSE 79–97; RESP 15–19; TEMP 97.5–98.3; O2SAT 94–97
[2025-02-19 06:24] LABS: Hematocrit 36.5 % (41.0-53.0); Hemoglobin 12.5 g/dL (13.5-17.5); Mean Corpuscular Hemoglobin 29.8 pg (28.0-32.0); Mean Corpuscular Volume 87.3 fL (80.0-100.0); Nucleated Red Blood Cells % 0.1 %
[2025-02-19 06:39] LABS: Anion Gap 10 (5-15); Carbon Dioxide 22 mmol/L (20-31); Potassium 4.2 mmol/L (3.5-5.1); Sodium 139 mmol/L (136-145)
[2025-02-19 06:45] LABS: BUN/Creatinine Ratio 16.3 (10.0-20.0); Blood Urea Nitrogen 39 mg/dL (9-23); Calcium 8.7 mg/dL (8.7-10.4); Chloride 107 mmol/L (98-107); Glucose 90 mg/dL (74-106)
[2025-02-19] MEDS: CARVEDILOL 3.125 MG TAB PO SCH (09:48)
[2025-02-19] MEDS: VANCOMYCIN 1GM/250ML KIT 250 ML IV ONE (12:01)
--- NOTE | 2025-02-19 16:02 | DVHPNRES ---
Progress Note Date Seen: Feb 19, 2025 Resident Creating Document: YOLETTE HIDALGO RESIDENT Medical Necessity Reason Pt with a Central, PICC or Fol: No Subjective Review of Systems This is a 70-year-old man with extensive medical history of diabetes, hypertension, glaucoma, hyperlipidemia, prostatomegaly who presented to the ER with right great toe pain. He states that he went to his foot doctor 3 months back where his right great toenails was cut incorrectly causing pain and bleeding and could have led to the symptoms that he has currently. He mentions that he was on antibiotics for a UTI which could have been the reason that his toenail infection got masked. He started experiencing pain and redness on the right grade 2 about a week and a half ago. It started turning purple 1 week ago. There was no fever or chills associated with it. The patient tried using salt with hot water and vinegar but it did not relieve the symptoms. CT of the right foot showed osteomyelitis and cellulitis of the great toe. Past medical history: Diabetes mellitus type 2, hypertension, CHF with reduced ejection fraction, BPH, glaucoma,CKD stage 3 Past surgical history: CABG in 2013 Social & Personal history: Lives at home with family Allergies: No known allergies Patient seen and examined at bedside. Patient is alert and oriented to time, place person and responding to all questions. In mild distress due to pain in his right great toe. Eyes: No Pain, No Vision change, No Conjunctivae inflammation, No Eyelid inflammation, No Redness ENT: No Ear pain, No Ear discharge, No Nose pain, No Nose discharge, No Nose congestion, No Mouth pain, No Mouth swelling, No Throat pain, No Throat swelling Cardiovascular: No Chest Pain, No Palpitations, No Orthopnea, No Paroxysmal No Dyspnea, No Edema, No Lt Headedness Respiratory: No Cough, No Dry, No Shortness of breath, No SOB with exertion, No Wheezing, No Hemoptysis, No Pleuritic Pain, No Sputum Gastrointestinal: No Nausea, No Vomiting, No Abdominal Pain, No Diarrhea, No Constipation, No Melena, No Hematochezia Genitourinary: No Dysuria, No Frequency, No Incontinence, No Hematuria, No Retention Cardiovascular: CAD, HTN, hyperipidemia Renal/: Chronic renal failure Endocrine: Diabetes Past Surgical History: CABG Lives: with Family 02/18- The patient was seen at bedside today. Does not complain of any pain. His Lantus insulin was changed from to 20 units HS to 40 units HS bolus and from mild to moderate sliding scale insulin. His HbA1c is 10.7. Duplex arterial study of both the lower extremities showed more than 50% stenosis in the anterior tibial artery in the left deep femoral artery. Vascular surgery was consulted for the same, pending evaluation by them. 02/19-The patient was seen at bedside today. He does not complain of any pain. His blood glucose was brought under control with 40 units of lantus hs. His systolic blood pressure was in the 180s, so his coreg dose was increased to 6.[address] abdomen aorta run off was ordered for him. His labs have remained within range. Objective vital signs Vital Sign Date Time Temp Pulse Resp B/P (MAP) Pulse Ox O2 Delivery O2 Flow Rate FiO2 02/19/25 13:00 97.7 81 16 123/76 (92) 94 97.7 02/19/25 08:00 Room Air* 0 21 Total Intake and Output 02/18/25 02/18/25 02/19/25 15:00 23:00 07:00 Intake Total 300 ml 526 ml 1010 ml Balance 300 ml 526 ml 1010 ml medications Current Medications Medications Dose Ordered Sig/Linda Route Start Time Stop Time Status Last Admin Dose Admin Vancomycin HCl 0 ml @ 0 mls/hr UD IV 02/17/25 10:45 Acetaminophen 325 mg Q4HP PRN PO 02/17/25 13:45 Morphine Sulfate 2 mg Q4HPRN PRN IV 02/17/25 13:45 Nitroglycerin 0.4 mg Q5MINP PRN SL 02/17/25 13:45 Morphine Sulfate 2 mg Q30M PRN IV 02/17/25 13:45 Cefazolin Sodium 50 ml @ 100 mls/hr Q8HR IV 02/17/25 15:00 02/19/25 14:55 100 MLS/HR Amiodarone HCl 200 mg BID PO 02/17/25 22:00 02/19/25 09:47 200 MG Apixaban 5 mg BID PO 02/17/25 22:00 02/19/25 09:47 5 MG Aspirin 81 mg DAILY PO 02/18/25 10:00 02/19/25 09:47 81 MG Hydralazine HCl 10 mg Q6HP PRN IV 02/17/25 15:15 02/19/25 05:01 10 MG Diagnostic Test (Pha) 1 strip IQ4HR 02/18/25 04:00 02/19/25 11:34 1 STRIP Insulin Human Regular IQ4HR [place] 02/18/25 04:00 02/19/25 11:59 12 UNITS Dextrose 50 ml UD PRN IV 02/18/25 00:30 Insulin Glargine 40 units HS SC 02/18/25 22:00 02/18/25 21:58 40 UNITS Carvedilol 6.25 mg Q12HR PO 02/19/25 10:00 02/19/25 09:48 6.25 MG Examination General Appearance: Cooperative. Well developed. Well nourished. NAD Head Exam: Normal inspection Neck Exam: Normal inspection. Non-tender. Normal alignment Pulmonary/Respiratory: Chest non-tender. Clear bilateral breath sounds, no crackles, no wheezing. Cardiovascular/Chest: Regular rate and rhythm. No murmurs. No JVD. Peripheral Pulses: 2+ Radial (R). 2+ Radial (L). 1+ Pedal (R), reduced pedal pulses in the right foot 2+ Pedal (L) Abdominal Exam: Normal bowel sounds. Soft. normal abdomen, no visible veins, Nontender. No hepatospenomegaly. No masses Ankle Exam: Negative ankle edema Lower extremities: Swelling of the right great toe with erythema and purplish discoloration , Negative lower extremity edema Neuro/Mental Status: A&O x4. Coherent. Thoughts/Psych: Normal thought pattern. Appropriate mood and affect. Good judgement and insight Skin Exam: Normal inspection. Normal color. Warm. Dry laboratory and microbiology Laboratory Tests 02/19/25 05:00 Test 02/19/25 05:00 Range/Units Serum Glucose 90 74-106 mg/dL Microbiology Date/Time Source Procedure Growth Status 02/17/25 11:10 Blood Blood Culture - Preliminary NO GROWTH AFTER 48 HOURS OF INCUBATION. Resulted Labs and/or images reviewed: Labs reviewed by me, Image(s) reviewed by me Problem List/Assessment/Plan Problem List/Assessment/Plan Osteomyelitis of great toe of right foot Cellulitis of right great toe Admit med surg CT showed osteomyelitis and cellulitis changes in the 1st distal phalanx Consulted surgery Started IV antibiotic vancomycin and cefazolin Peripheral arterial disease Bilateral arterial Doppler-1. Greater than 50% stenosis in the right anterior tibial artery. 2. Left lower extremity shows greater 50% stenosis in the left deep femoral artery. Greater than 50% stenosis in the left anterior tibial artery. Hyperkalemia,resolved Monitor labs for now Diabetes mellitus type 2, uncontrolled moderate Insulin sliding scale Lantus 40 units at night HbA1c pending Hypertensive urgency coreg q12 CHF with reduced ejection fraction 30%, not in exacerbation PUD prophylaxis: Not indicated DVT prophylaxis: Lovenox 30 mg subcutaneous Goals of care: Full code, discussed for >16 minutes on Plan discussed with patient Plan discussed with Dr. Mireles Plan discussed with: Patient Plan discussed with: Patient My Orders My Orders Orders - YOLETTE HIDALGO Procedure Category Date Status Time Ct Angio Abd Aorta W CT 02/19/25 Logged Run Off 12:52 Date of Service: Feb 19, 2025 Billing Provider: TIFFANI GUTIERREZ MD Common Visit Codes: [id number] INP/OBS CARE(HIGH) YOLETTE HIDALGO Feb 19, 2025 16:02 TIFFANI GUTIERREZ MD Feb 23, 2025 00:58
[2025-02-20] VITALS (8 sets, daily range): BP systolic 122–177; BP diastolic 71–92; PULSE 65–88; RESP 16–19; TEMP 97.4–98.3; O2SAT 91–98
[2025-02-20] MEDS ORDERED: IOHEXOL 350 MG/ML 100ML IJ ONE (07:14)
[2025-02-20 08:07] LABS: Anion Gap 10 (5-15); Carbon Dioxide 22 mmol/L (20-31); Potassium 4.6 mmol/L (3.5-5.1); Sodium 140 mmol/L (136-145)
[2025-02-20 08:11] LABS: Calcium 8.3 mg/dL (8.7-10.4); Chloride 108 mmol/L (98-107)
[2025-02-20 08:13] LABS: Glucose 103 mg/dL (74-106)
[2025-02-20 08:14] LABS: BUN/Creatinine Ratio 18.6 (10.0-20.0); Hematocrit 34.6 % (41.0-53.0); Hemoglobin 11.9 g/dL (13.5-17.5); Mean Corpuscular Hemoglobin 30.1 pg (28.0-32.0); Mean Corpuscular Volume 87.5 fL (80.0-100.0); Nucleated Red Blood Cells % 0.1 %
[2025-02-20 08:18] LABS: Blood Urea Nitrogen 44 mg/dL (9-23)
--- NOTE | 2025-02-20 09:11 | DVH ---
Examination: CT CT ANGIO ABD AORTA W RUN OFF CLINICAL HISTORY: Stenosis in the lower limb circulation Comparison: None Technique: Using helical technique, CT data from the lung bases through the toes was obtained during rapid IV contrast infusion. The examination was timed to the arterial system to generate a CT angiogr aphic study. 3D images were generated at an independent work station. Dose reduction techniques inclu ded automated exposure control. Radiation Dose Information: CT Dose: CTDI volume is 8.85 mGy. Dose-length product is 1118.02 mGy*cm Findings: Vascular: Abdominal aorta: Normal caliber, patent Celiac artery: Patent SMA: Patent Renal arteries: Patent MICA: Patent Right lower extremity: Common iliac artery: Patent External iliac artery: Patent Internal iliac artery: Patent Common femoral artery: Patent Profunda femoral artery: Patent Superficial femoral artery: Patent Popliteal artery: Patent Anterior tibial artery: Nonvisualization of flow Peroneal tibial trunk: Patent Peroneal artery: Faint flow. Posterior tibial artery: Patent Dorsalis pedis artery: Nonvisualization of flow Left lower extremity: Common iliac artery: Patent External iliac artery: Patent Internal iliac artery: Patent Common femoral artery: Patent. Moderate stenosis and atheromatous plaque. Profunda femoral artery: Patent Superficial femoral artery: Patent Popliteal artery: Patent Anterior tibial artery: Nonvisualization of flow. Peroneal tibial trunk: Patent Peroneal artery: Faint flow Posterior tibial artery: Patent Dorsalis pedis artery: Nonvisualization of flow. Portal/mesenteric veins: normal Abdominal systemic veins: normal Abdomen/Pelvis: Liver: The liver is normal in size and morphology,. No focal hepatic lesion. The portal veins are pat ent. Biliary System: Gallbladder: Normal Bile Ducts: No intrahepatic or extrahepatic biliary ductal dilation. Spleen: No splenomegaly or focal splenic lesion. Pancreas: No masses or ductal dilation. Adrenals: Normal. Urinary System: Kidneys and Ureters: Normal in size and location. No renal masses. No renal or ureteral calculi. No hydronephrosis or hydroureter. Bladder: Normal. GI System: Stomach, small bowel, and large bowel are normal in caliber without wall thickening or dil ation Appendix is normal. Lymph nodes: No lymphadenopathy. Peritoneal cavity and surface: No free fluid. No pneumoperitoneum. Soft Tissues: Normal. Reproductive Organs: Prostatomegaly. Bones: No acute fracture or aggressive osseous lesion. Impression: Diffuse Vascular atherosclerotic calcifications. Moderate stenosis of the left common femoral artery. Nonvisualization of flow in bilateral anterior tibial arteries, dorsalis pedis arteries and faint laura w in bilateral peroneal arteries. Abdomen/Pelvis: 1. No acute abdominal pelvic process.
--- NOTE | 2025-02-20 14:19 | DVHINCON2 ---
Date of service: Feb 20, 2025 History of Present Illness 70-year-old man with extensive medical history of diabetes, hypertension, glaucoma, hyperlipidemia, prostatomegaly who presented to the ER with right great toe pain. He states that he went to his foot doctor 3 months back where his right great toenails was cut incorrectly causing pain and bleeding and could have led to the symptoms that he has currently. He mentions that he was on antibiotics for a UTI which could have been the reason that his toenail infection got masked. He started experiencing pain and redness on the right grade 2 about a week and a half ago. It started turning purple 1 week ago. There was no fever or chills associated with it. The patient tried using salt with hot water and vinegar but it did not relieve the symptoms. CT of the right foot showed osteomyelitis and cellulitis of the great toe. Past medical history: Diabetes mellitus type 2, hypertension, CHF with reduced ejection fraction, BPH, glaucoma,CKD stage 3 Past surgical history: CABG in 2013 Social & Personal history: Lives at home with family Past Medical History reviewed Family History: FH: stroke Family history: Diabetes mellitus Family history: Hypertension Allergies: Coded Allergies: NO KNOWN ALLERGIES (Unverified , 11/16/12) Home Meds Active Scripts Sulfamethoxazole W/Trimethopri (Bactrim Ds Tablet) 1 Tab Tb, 1 TAB PO BID for 7 Days, #14 TAB Prov:ROLANDA RUSH MD 05/29/24 Tamsulosin Hcl (Flomax) 0.4 Mg Cap, 0.4 MG PO DAILY for 7 Days, #7 CAP Prov:ROLANDA RUSH MD 05/29/24 Acetaminophen (Acetaminophen Er) 650 Mg Tab, 650 MG PO TID PRN for 5 Days, #15 TAB Prov:ROLANDA RUSH MD 05/29/24 Amiodarone Hcl (Amiodarone Hcl) 200 Mg Tab, 200 MG PO BID, #180 TAB Prov:MARYBETH TEAGUE MD 04/18/22 Apixaban Base (ELIQUIS) 5 Mg Tab, 5 MG PO BID, #180 TAB Prov:MARYBETH TEAGUE MD 04/18/22 Reported Medications Aspirin (Aspir-81) 81 Mg Tab, 1 TAB PO DAILY, #30 TAB 5 Refills 02/17/25 Insulin Glargine (Basaglar Kwikpen) 100 Unit/Ml Inj, 50 UNIT SC DAILY 02/17/25 Tamsulosin Hcl (Tamsulosin Hcl) 0.4 Mg Cap, 1 CAP PO DAILY 02/17/25 Ergocalciferol (Vitamin D) 50,000 Unit Cap, 1 CAP PO QWEEKLY 02/17/25 Sodium Bicarbonate (Sodium Bicarbonate) 650 Mg Tab, 1 TAB PO 02/17/25 Carvedilol (Carvedilol) 3.125 Mg Tab, 1 TAB PO BID 02/17/25 Latanoprost (LATANOPROST) 0.005 % Kaitlin, EACHEYE 02/17/25 Lovastatin (Lovastatin) 40 Mg Tab, 1 TAB PO 02/17/25 Ferrous Sulfate (Ferosul) 325 Mg Tab, 1 TAB PO DAILY 02/17/25 Finasteride (Finasteride) 5 Mg Tab, 1 TAB PO DAILY 02/17/25 Sacubitril-Valsartan (Entresto 24-26 mg) 1 Tab Tab, 1 TAB PO BID 02/17/25 Dulaglutide (Trulicity) 0.75 Mg/0.5 Ml Inj, 0.75 MG SC, INJ 04/14/22 Canagliflozin (INVOKANA) 100 Mg Tab, PO DAILY, TAB 01/28/17 [pravastatin] No Conflict Check, 40 MG PO HS 11/22/12 Hydrocodone-Acetaminophen ([place] 5/325MG) 1 Tab Tb, 1 TAB GT TIDP 11/22/12 Losartan Potassium (Losartan Potassium) 100 Mg Tab, 100 MG PO DAILY 11/22/12 Gabapentin (GABAPENTIN) 250 Mg/5 Ml Kaitlin, 300 MG PO TID 11/22/12 Aspirin (EQ ASPIRIN ADULT LOW DOSE) 81 Mg Tab, 81 MG PO DAILY 11/22/12 Cholecalciferol (VITAMIN D) 2,000 Unit Tab, 5000 UNIT PO QWEEKLY 11/22/12 Glimepiride (Amaryl) 4 Mg Tab, 4 MG PO BIDWM 11/22/12 Metformin Hydrochloride (Metformin Hcl) 1,000 Mg Tab, 2000 MG PO BIDAC 11/22/12 Review of Systems 10 pt ros otherwise negative Vital Signs Vital Signs Date Time Temp Pulse Resp B/P (MAP) Pulse Ox O2 Delivery O2 Flow Rate FiO2 02/20/25 12:42 97.6 74 16 162/88 (112) 95 97.6 02/20/25 07:30 Room Air* 0 21 Physical Exam nad s1 s2 rrr ctab soft nt/nd RLE great toe mild discolred, dry wound Labs/Diagnostic Data Labs Test 02/20/25 12:39 02/20/25 05:59 02/17/25 15:32 02/17/25 08:22 Range/Units POC Glucose 219 H 70-106 mg/dl White Blood Count 6.2 4.4-10.8 10^3/uL Red Blood Count 3.96 L 4.5-5.90 10^6/uL Hemoglobin 11.9 L 13.5-17.5 g/dL Hematocrit 34.6 L 41.0-53.0 % Mean Corpuscular Volume 87.5 80.0-100.0 fL Mean Corpuscular Hemoglobin 30.1 28.0-32.0 pg Mean Corpuscular Hemoglobin Concent 34.4 32.0-36.0 g/dL Red Cell Distribution Width 13.5 11.8-14.3 % Platelet Count 215 140-450 10^3/uL Mean Platelet Volume 9.3 6.9-10.8 fL Neutrophils (%) (Auto) 62.4 37.0-80.0 % Lymphocytes (%) (Auto) 26.3 10.0-50.0 % Monocytes (%) (Auto) 9.0 0.0-12.0 % Eosinophils (%) (Auto) 2.0 0.0-7.0 % Basophils (%) (Auto) 0.3 0.0-2.0 % Neutrophils # (Auto) 3.9 1.6-8.6 10 ^3/uL Lymphocytes # (Auto) 1.6 0.4-5.4 10 ^3/uL Monocytes # (Auto) 0.6 0-1.3 10 ^3/uL Eosinophils # (Auto) 0.1 0-0.8 10 ^3/uL Basophils # (Auto) 0 0-0.2 10 ^3/uL Nucleated Red Blood Cells 0.1 % Sodium Level 140 136-145 mmol/L Potassium Level 4.6 3.5-5.1 mmol/L Chloride Level 108 H 98-107 mmol/L Carbon Dioxide Level 22 20-31 mmol/L Anion Gap 10 5-15 Blood Urea Nitrogen 44 H 9-23 mg/dL Creatinine 2.36 H 0.700-1.30 mg/dL Glomerular Filtration Rate Calc 29 >90 mL/min BUN/Creatinine Ratio 18.6 10.0-20.0 Serum Glucose 103 74-106 mg/dL Calcium Level 8.3 L 8.7-10.4 mg/dL Random Vancomycin Level 19.9 H 5-10 ug/mL Prothrombin Time 10.1 9.3-11.8 sec Prothrombin Time INR 0.95 0.9-1.15 Activated Partial Thromboplast Time 25.6 24.5-34.5 SEC Lactic Acid Level 1.3 0.4-2.0 mmol/L Urine Color Light-yellow Yellow Urine Clarity Clear Clear Urine pH 6.0 5.0-9.0 Urine Specific [place] 1.011 1.001-1.035 Urine Protein 2+ H Negative Urine Ketones Negative Negative Urine Blood Trace H Negative /uL Urine Nitrite Negative Negative Urine Bilirubin Negative Negative Urine Urobilinogen Normal Negative mg/dL Urine Leukocyte Esterase Negative Negative /uL Urine RBC 3 0 - 3 /hpf Urine Microscopic WBC 1 0-3 /HPF Urine Squamous Epithelial Cells None seen <5 /hpf Urine Bacteria Few H None Seen /hpf Urine Glucose 4+ H Normal mg/dL Urine Opiates Screen Neg NEGATIVE Urine Fentanyl Screen Neg NEGATIVE Urine Barbiturates Screen Neg NEGATIVE Urine Phencyclidine Screen Neg NEGATIVE Urine Amphetamines Screen Neg NEGATIVE Urine Benzodiazepines Screen Neg NEGATIVE Urine Cocaine Screen Neg NEGATIVE Urine Cannabinoids Screen Neg NEGATIVE Test 02/17/25 08:10 Range/Units Erythrocyte Sedimentation Rate 50 H 0-20 mm/hr Hemoglobin A1c 10.7 H <5.7 % A1C Magnesium Level 1.9 1.6-2.6 mg/dL Total Bilirubin 0.4 0.2-1.0 mg/dL Direct Bilirubin < 0.1 <0.3 mg/dL Aspartate Amino Transferase (AST) 14 13-40 U/L Alanine Aminotransferase (ALT) 17 7-40 U/L Alkaline Phosphatase 115 46-116 U/L C-Reactive Protein High Sensitivity 0.58 <1.0 mg/dL B-Type Natriuretic Peptide 194.09 0-100 pg/mL Total Protein 7.1 5.7-8.2 g/dL Albumin 4.2 3.2-4.8 g/dL Microbiology Date/Time Source Procedure Growth Status 02/17/25 11:10 Blood Blood Culture - Preliminary NO GROWTH AFTER 72 HOURS OF INCUBATION. Resulted Assessment PAD cad cabg htn HL DM CKD Plan/Recommendation Diffuse Vascular atherosclerotic calcifications. Moderate stenosis of the left common femoral artery. Nonvisualization of flow in bilateral anterior tibial arteries, dorsalis pedis arteries and faint flow in bilateral peroneal arteries. reviewed CTA and US pt has 2 vessel distal runoff noted with AT disease he has good flow in PT which circulates his great toe would recommend asa, plavix, statin routine fu with cardio wouldnt recommend angio at this time given clinical status and advanced CKD as well pt agrees to plan consider angio if wound worsens Plan discussed with: Patient MARIETTA GRUBER MD Feb 20, 2025 14:19
--- NOTE | 2025-02-20 14:20 | DVHPNRES ---
Progress Note Date Seen: Feb 20, 2025 Resident Creating Document: YOLETTE HIDALGO RESIDENT Medical Necessity Reason Pt with a Central, PICC or Fol: No Subjective Review of Systems This is a 70-year-old man with extensive medical history of diabetes, hypertension, glaucoma, hyperlipidemia, prostatomegaly who presented to the ER with right great toe pain. He states that he went to his foot doctor 3 months back where his right great toenails was cut incorrectly causing pain and bleeding and could have led to the symptoms that he has currently. He mentions that he was on antibiotics for a UTI which could have been the reason that his toenail infection got masked. He started experiencing pain and redness on the right grade 2 about a week and a half ago. It started turning purple 1 week ago. There was no fever or chills associated with it. The patient tried using salt with hot water and vinegar but it did not relieve the symptoms. CT of the right foot showed osteomyelitis and cellulitis of the great toe. Past medical history: Diabetes mellitus type 2, hypertension, CHF with reduced ejection fraction, BPH, glaucoma,CKD stage 3 Past surgical history: CABG in 2013 Social & Personal history: Lives at home with family Allergies: No known allergies Patient seen and examined at bedside. Patient is alert and oriented to time, place person and responding to all questions. In mild distress due to pain in his right great toe. Eyes: No Pain, No Vision change, No Conjunctivae inflammation, No Eyelid inflammation, No Redness ENT: No Ear pain, No Ear discharge, No Nose pain, No Nose discharge, No Nose congestion, No Mouth pain, No Mouth swelling, No Throat pain, No Throat swelling Cardiovascular: No Chest Pain, No Palpitations, No Orthopnea, No Paroxysmal No Dyspnea, No Edema, No Lt Headedness Respiratory: No Cough, No Dry, No Shortness of breath, No SOB with exertion, No Wheezing, No Hemoptysis, No Pleuritic Pain, No Sputum Gastrointestinal: No Nausea, No Vomiting, No Abdominal Pain, No Diarrhea, No Constipation, No Melena, No Hematochezia Genitourinary: No Dysuria, No Frequency, No Incontinence, No Hematuria, No Retention Cardiovascular: CAD, HTN, hyperipidemia Renal/: Chronic renal failure Endocrine: Diabetes Past Surgical History: CABG Lives: with Family 02/18- The patient was seen at bedside today. Does not complain of any pain. His Lantus insulin was changed from to 20 units HS to 40 units HS bolus and from mild to moderate sliding scale insulin. His HbA1c is 10.7. Duplex arterial study of both the lower extremities showed more than 50% stenosis in the anterior tibial artery in the left deep femoral artery. Vascular surgery was consulted for the same, pending evaluation by them. 02/19-The patient was seen at bedside today. He does not complain of any pain. His blood glucose was brought under control with 40 units of lantus hs. His systolic blood pressure was in the 180s, so his coreg dose was increased to 6.[address] abdomen aorta run off was ordered for him. His labs have remained within range. 02/20- The patient was seen at bedside today. The patient states that he is doing well. His blood glucose has been within normal overnight. CT angio abdominal aorta runoff was done which showed diffuse vascular atherosclerotic calcification, moderate stenosis of the left common femoral and nonnvisualization of flow in bilateral anterior tibial arteries, dorsalis pedis arteries and faint flow in bilateral peroneal arteries. Cardiology was consulted for the same. Objective vital signs Vital Sign Date Time Temp Pulse Resp B/P (MAP) Pulse Ox O2 Delivery O2 Flow Rate FiO2 02/20/25 12:42 97.6 74 16 162/88 (112) 95 97.6 02/20/25 07:30 Room Air* 0 21 Total Intake and Output 02/19/25 02/19/25 02/20/25 15:00 23:00 07:00 Intake Total 860 ml 600 ml Balance 860 ml 600 ml medications Current Medications Medications Dose Ordered Sig/Linda Route Start Time Stop Time Status Last Admin Dose Admin Vancomycin HCl 0 ml @ 0 mls/hr UD IV 02/17/25 10:45 Acetaminophen 325 mg Q4HP PRN PO 02/17/25 13:45 Morphine Sulfate 2 mg Q4HPRN PRN IV 02/17/25 13:45 Nitroglycerin 0.4 mg Q5MINP PRN SL 02/17/25 13:45 Morphine Sulfate 2 mg Q30M PRN IV 02/17/25 13:45 Cefazolin Sodium 50 ml @ 100 mls/hr Q8HR IV 02/17/25 15:00 02/20/25 13:01 100 MLS/HR Amiodarone HCl 200 mg BID PO 02/17/25 22:00 02/20/25 09:19 200 MG Apixaban 5 mg BID PO 02/17/25 22:00 02/20/25 09:19 5 MG Aspirin 81 mg DAILY PO 02/18/25 10:00 02/20/25 09:18 81 MG Hydralazine HCl 10 mg Q6HP PRN IV 02/17/25 15:15 02/19/25 05:01 10 MG Diagnostic Test (Pha) 1 strip IQ4HR 02/18/25 04:00 02/20/25 12:45 1 STRIP Insulin Human Regular IQ4HR SC 02/18/25 04:00 02/20/25 12:47 6 UNITS Dextrose 50 ml UD PRN IV 02/18/25 00:30 Insulin Glargine 40 units HS SC 02/18/25 22:00 02/19/25 22:54 40 UNITS Carvedilol 6.25 mg Q12HR PO 02/19/25 10:00 02/20/25 09:19 6.25 MG laboratory and microbiology Laboratory Tests 02/20/25 05:59 Test 02/20/25 05:59 Range/Units Serum Glucose 103 74-106 mg/dL Microbiology Date/Time Source Procedure Growth Status 02/17/25 11:10 Blood Blood Culture - Preliminary NO GROWTH AFTER 72 HOURS OF INCUBATION. Resulted Labs and/or images reviewed: Labs reviewed by me, Image(s) reviewed by me Problem List/Assessment/Plan Problem List/Assessment/Plan #Osteomyelitis of great toe of right foot #Cellulitis of right great toe -Admit med surg -CT showed osteomyelitis and cellulitis changes in the 1st distal phalanx -Consulted surgery, pending evaluation -Started IV antibiotic vancomycin and cefazolin # Peripheral arterial disease b/l -Bilateral arterial Doppler-1. Greater than 50% stenosis in the right anterior tibial artery. 2. Left lower extremity shows greater 50% stenosis in the left deep femoral artery. Greater than 50% stenosis in the left anterior tibial artery. -aorta CT with runoff- Diffuse Vascular atherosclerotic calcifications. -Moderate stenosis of the left common femoral -Nonvisualization of flow in bilateral anterior tibial arteries, dorsalis pedis arteries and faint flow in bilateral peroneal arteries. - consulted Dr Zelaya possible angio, advised ASA, Plavix and statin and routine follow up with cardio, would not recommend angio at this time due to given clinical status and CKD #Hyperkalemia,resolved - Monitor labs for now #Diabetes mellitus type 2, uncontrolled, HbA1c 10.7 - continuously monitor - moderate Insulin sliding scale - Lantus 40 units at night #CHF with reduced ejection fraction 30%, not in exacerbation #Hypertensive urgency -continuously monitored hypertension -resumed coreg q12 PUD prophylaxis: Not indicated DVT prophylaxis: Lovenox 30 mg subcutaneous Goals of care: Full code, discussed for >16 minutes on Plan discussed with patient Plan discussed with Dr. Mireles Plan discussed with: Patient Plan discussed with: Patient My Orders My Orders Orders - YOLETTE HIDALGO RESIDENT Procedure Category Date Status Time Ct Angio Abd Aorta W CT 02/20/25 Resulted Run Off 07:04 * Cardiology Consult CONS 02/20/25 Transmitted 11:08 Date of Service: Feb 20, 2025 Billing Provider: TIFFANI GUTIERREZ MD Common Visit Codes: [id number] INP/OBS CARE(HIGH) YOLETTE HIDALGO RESIDENT Feb 20, 2025 14:20 ANTHONY DURAND RESIDENT Feb 20, 2025 14:33 TIFFANI GUTIERREZ MD Feb 23, 2025 01:27
[2025-02-20] MEDS ORDERED: DOXY1CAP58 PO (15:13)
[2025-02-20] MEDS ORDERED: CEFP200T15 PO (15:13)
[2025-02-20] MEDS ORDERED: ATOR-507 PO (15:41)
[2025-02-20] MEDS: CLOPIDOGREL BISULFATE 75 MG TAB PO ONE (16:04)
--- NOTE | 2025-02-20 16:28 | DVHDSRES ---
Discharge Summary Date of Admission Resident Creating Document: YOLETTE HIDALGO RESIDENT Feb 17, 2025 at 13:45 Date of Discharge: Feb 20, 2025 Labs/Diagnostic Data: Laboratory Results Test 02/20/25 12:39 02/20/25 05:59 02/17/25 15:32 02/17/25 08:22 POC Glucose 219 mg/dl (70-106) White Blood Count 6.2 10^3/uL (4.4-10.8) Red Blood Count 3.96 10^6/uL (4.5-5.90) Hemoglobin 11.9 g/dL (13.5-17.5) Hematocrit 34.6 % (41.0-53.0) Mean Corpuscular Volume 87.5 fL (80.0-100.0) Mean Corpuscular Hemoglobin 30.1 pg (28.0-32.0) Mean Corpuscular Hemoglobin Concent 34.4 g/dL (32.0-36.0) Red Cell Distribution Width 13.5 % (11.8-14.3) Platelet Count 215 10^3/uL (140-450) Mean Platelet Volume 9.3 fL (6.9-10.8) Neutrophils (%) (Auto) 62.4 % (37.0-80.0) Lymphocytes (%) (Auto) 26.3 % (10.0-50.0) Monocytes (%) (Auto) 9.0 % (0.0-12.0) Eosinophils (%) (Auto) 2.0 % (0.0-7.0) Basophils (%) (Auto) 0.3 % (0.0-2.0) Neutrophils # (Auto) 3.9 10 ^3/uL (1.6-8.6) Lymphocytes # (Auto) 1.6 10 ^3/uL (0.4-5.4) Monocytes # (Auto) 0.6 10 ^3/uL (0-1.3) Eosinophils # (Auto) 0.1 10 ^3/uL (0-0.8) Basophils # (Auto) 0 10 ^3/uL (0-0.2) Nucleated Red Blood Cells 0.1 % Sodium Level 140 mmol/L (136-145) Potassium Level 4.6 mmol/L (3.5-5.1) Chloride Level 108 mmol/L (98-107) Carbon Dioxide Level 22 mmol/L (20-31) Anion Gap 10 (5-15) Blood Urea Nitrogen 44 mg/dL (9-23) Creatinine 2.36 mg/dL (0.700-1.30) Glomerular Filtration Rate Calc 29 mL/min (>90) BUN/Creatinine Ratio 18.6 (10.0-20.0) Serum Glucose 103 mg/dL (74-106) Calcium Level 8.3 mg/dL (8.7-10.4) Random Vancomycin Level 19.9 ug/mL (5-10) Prothrombin Time 10.1 sec (9.3-11.8) Prothrombin Time INR 0.95 (0.9-1.15) Activated Partial Thromboplast Time 25.6 SEC (24.5-34.5) Lactic Acid Level 1.3 mmol/L (0.4-2.0) Urine Color Light-yellow (Yellow) Urine Clarity Clear (Clear) Urine pH 6.0 (5.0-9.0) Urine Specific [place] 1.011 (1.001-1.035) Urine Protein 2+ (Negative) Urine Ketones Negative (Negative) Urine Blood Trace /uL (Negative) Urine Nitrite Negative (Negative) Urine Bilirubin Negative (Negative) Urine Urobilinogen Normal mg/dL (Negative) Urine Leukocyte Esterase Negative /uL (Negative) Urine RBC 3 /hpf (0 - 3) Urine Microscopic WBC 1 /HPF (0-3) Urine Squamous Epithelial Cells None seen /hpf (<5) Urine Bacteria Few /hpf (None Seen) Urine Glucose 4+ mg/dL (Normal) Urine Opiates Screen Neg (NEGATIVE) Urine Fentanyl Screen Neg (NEGATIVE) Urine Barbiturates Screen Neg (NEGATIVE) Urine Phencyclidine Screen Neg (NEGATIVE) Urine Amphetamines Screen Neg (NEGATIVE) Urine Benzodiazepines Screen Neg (NEGATIVE) Urine Cocaine Screen Neg (NEGATIVE) Urine Cannabinoids Screen Neg (NEGATIVE) Test 02/17/25 08:10 Erythrocyte Sedimentation Rate 50 mm/hr (0-20) Hemoglobin A1c 10.7 % A1C (<5.7) Magnesium Level 1.9 mg/dL (1.6-2.6) Total Bilirubin 0.4 mg/dL (0.2-1.0) Direct Bilirubin < 0.1 mg/dL (<0.3) Aspartate Amino Transferase (AST) 14 U/L (13-40) Alanine Aminotransferase (ALT) 17 U/L (7-40) Alkaline Phosphatase 115 U/L (46-116) C-Reactive Protein High Sensitivity 0.58 mg/dL (<1.0) B-Type Natriuretic Peptide 194.09 pg/mL (0-100) Total Protein 7.1 g/dL (5.7-8.2) Albumin 4.2 g/dL (3.2-4.8) Other Laboratory Tests 02/20/25 05:59 Brief Hx & Hospital Course: This is a 70-year-old man with extensive medical history of diabetes, hypertension, glaucoma, hyperlipidemia, prostatomegaly who presented to the ER with right great toe pain. He stated that he went to his foot doctor 3 months back where his right great toenails was cut incorrectly causing pain and bleeding and could have led to the symptoms that he has currently. He mentioned that he was on antibiotics for a UTI which could have been the reason that his toenail infection got masked. He started experiencing pain and redness on the right grade toe about a week and a half ago. It started turning purple 1 week ago. There was no fever or chills associated with it. The patient tried using salt with hot water and vinegar but it did not relieve the symptoms. CT of the right foot showed osteomyelitis and cellulitis of the great toe. His HbA1c was 10.7. He was given Lantus 40 units HS bolus was on moderate insulin sliding scale. Duplex arterial study of both the lower extremities showed more than 50% stenosis in the anterior tibial artery in the left deep femoral artery.CT angio abdominal aorta runoff was done which showed diffuse vascular atherosclerotic calcification, moderate stenosis of the left common femoral and nonnvisualization of flow in bilateral anterior tibial arteries, dorsalis pedis arteries and faint flow in bilateral peroneal arteries. Cardiology was consulted for the same and they recommended putting the patient on clopidogrel and Lipitor and following up outpatient. Medications and recommendations were explained to the patient he demonstrated understanding of the same. He was asked to follow up outpatient with Podiatry in 1-2 weeks. All questions were answered and all concerns were addressed. The patient was discharged home. Past medical history: Diabetes mellitus type 2, hypertension, CHF with reduced ejection fraction, BPH, glaucoma,CKD stage 3 Past surgical history: CABG in 2013 Social & Personal history: Lives at home with family Allergies: No known allergies Patient seen and examined at bedside. Patient is alert and oriented to time, place person and responding to all questions. In mild distress due to pain in his right great toe. Eyes: No Pain, No Vision change, No Conjunctivae inflammation, No Eyelid inflammation, No Redness ENT: No Ear pain, No Ear discharge, No Nose pain, No Nose discharge, No Nose congestion, No Mouth pain, No Mouth swelling, No Throat pain, No Throat swelling Cardiovascular: No Chest Pain, No Palpitations, No Orthopnea, No Paroxysmal No Dyspnea, No Edema, No Lt Headedness Respiratory: No Cough, No Dry, No Shortness of breath, No SOB with exertion, No Wheezing, No Hemoptysis, No Pleuritic Pain, No Sputum Gastrointestinal: No Nausea, No Vomiting, No Abdominal Pain, No Diarrhea, No Constipation, No Melena, No Hematochezia Genitourinary: No Dysuria, No Frequency, No Incontinence, No Hematuria, No Retention Cardiovascular: CAD, HTN, hyperipidemia Renal/: Chronic renal failure Endocrine: Diabetes Past Surgical History: CABG Lives: with Family Operations or Procedures 1.PROCEDURE(s): RFTCT - CT R FOOT WO CONTRAST REASON: Infection to R great toe ORDER NUMBER(s): [id number], ACCESSION NUMBER(s): [id number] CLINICAL INDICATION: Infection to R great toe TECHNIQUE: Noncontrast CT of the right foot was performed. Sagittal and coronal reformatted images are provided. COMPARISON: None CT Dose: CTDI volume is 7.8 mGy. Dose-length product is 169.9 mGy*cm FINDINGS: There is cortical disruption along the dorsal aspect of the 1st distal phalanx compatible with osteomyelitis. There is overlying soft tissue swelling reflecting cellulitis. No acute fracture or dislocation. There are hammertoe deformities. 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 Soft tissue swelling in the forefoot. IMPRESSION: 1. Osteomyelitis in the 1st distal phalanx. 2. 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 3. Cellulitis. All CT scans at this medical facility are performed using dose modulation techniques as appropriate to a performed exam including the following: Automated exposure control was utilized; adjustment of the MA and/or KV according to patient size; and use of iterative reconstruction technique. 2.PROCEDURE(s): CXR2 - CHEST TWO VIEWS ROUTINE REASON: R/o pna ORDER NUMBER(s): [id number], ACCESSION NUMBER(s): [id number] CHEST RADIOGRAPH Indication: Pneumonia Technique: Frontal and lateral view of the chest was obtained Comparison: XY CHEST PORTABLE on DOS: 02/09/23, CXR2 on DOS: 04/11/22, CHEST TWO VIEWS ROUTINE on DOS: 04/11/22 FINDINGS: Lines and Tubes: Median sternotomy Lungs: Clear Pleura: No effusion. No pneumothorax. Cardiomediastinal contours: Unremarkable Bones: Unremarkable IMPRESSION: No evidence of acute disease. 3.PROCEDURE(s): BLEAD - BiLat Low Ext Art Duplex REASON: peripheral arterial disease? ORDER NUMBER(s): [id number], ACCESSION NUMBER(s): [id number] BILATERAL Lower Extremity Arterial Duplex Date: 02/17/2025 03:19 PM Clinical History: peripheral arterial disease Comparison: None Technique: Duplex Doppler evaluation including color Doppler and spectral/pulsed waveform analysis of the lower extremity arteries was performed. Finding: RIGHT: Peak systolic velocities are as follows: BLUEPRINT MAKER 90 cm/s triphasic waveform Deep femoral 101 cm/s triphasic waveform SFA proximal 75 cm/s biphasic waveform SFA mid-portion 66 cm/s biphasic SFA distal 101 cm/s biphasic Popliteal 52 cm/s biphasic Posterior tibial 85 cm/s biphasic Anterior tibial 139 cm/s monophasic greater than 50% stenosis Dorsalis pedis 20 cm/s monophasic The waveforms are triphasic and biphasic waveform throughout however [id number] monophasic waveform is noted in the anterior tibial artery and dorsalis pedis. LEFT: Peak systolic velocities are as follows: BLUEPRINT MAKER 161 cm/s triphasic waveform Deep femoral 200 cm/s biphasic waveform > 50% stenosis SFA proximal 152 cm/s biphasic waveform SFA mid-portion 52 cm/s biphasic waveform SFA distal 76 cm/s biphasic waveform Popliteal 98 cm/s biphasic waveform Posterior tibial 98 cm/s biphasic waveform Anterior tibial 71 cm/s monophasic waveform > 50% stenosis Dorsalis pedis 31 cm/s monophasic waveform The waveforms are biphasic and triphasic. REFERENCE VALUES, [facility] ([facility]) vascular Imaging Lab Criteria: Peak systolic velocity ranges (in cm/sec) are as follows: <150 cm/s - <20 % stenosis 150-200 cm/s - 20-49% stenosis 200-300 cm/s - 50-75% stenosis >300 cm/s -> 75% stenosis IMPRESSION: 1. Greater than 50% stenosis in the right anterior tibial artery. 2. Left lower extremity shows greater 50% stenosis in the left deep femoral artery. Greater than 50% stenosis in the left anterior tibial artery. 4.PROCEDURE(s): CTAAA - CT ANGIO ABD AORTA W RUN OFF REASON: Stenosis in the lower limb circulation ORDER NUMBER(s): [id number], ACCESSION NUMBER(s): [id number] Examination: CT CT ANGIO ABD AORTA W RUN OFF CLINICAL HISTORY: Stenosis in the lower limb circulation Comparison: None Technique: Using helical technique, CT data from the lung bases through the toes was obtained during rapid IV contrast infusion. The examination was timed to the arterial system to generate a CT angiographic study. 3D images were generated at an independent work station. Dose reduction techniques included automated exposure control. Radiation Dose Information: CT Dose: CTDI volume is 8.85 mGy. Dose-length product is 1118.02 mGy*cm Findings: Vascular: Abdominal aorta: Normal caliber, patent Celiac artery: Patent SMA: Patent Renal arteries: Patent MICA: Patent Right lower extremity: Common iliac artery: Patent External iliac artery: Patent Internal iliac artery: Patent Common femoral artery: Patent Profunda femoral artery: Patent Superficial femoral artery: Patent Popliteal artery: Patent Anterior tibial artery: Nonvisualization of flow Peroneal tibial trunk: Patent Peroneal artery: Faint flow. Posterior tibial artery: Patent Dorsalis pedis artery: Nonvisualization of flow Left lower extremity: Common iliac artery: Patent External iliac artery: Patent Internal iliac artery: Patent Common femoral artery: Patent. Moderate stenosis and atheromatous plaque. Profunda femoral artery: Patent Superficial femoral artery: Patent Popliteal artery: Patent Anterior tibial artery: Nonvisualization of flow. Peroneal tibial trunk: Patent Peroneal artery: Faint flow Posterior tibial artery: Patent Dorsalis pedis artery: Nonvisualization of flow. Portal/mesenteric veins: normal Abdominal systemic veins: normal Abdomen/Pelvis: Liver: The liver is normal in size and morphology,. No focal hepatic lesion. The portal veins are patent. Biliary System: Gallbladder: Normal Bile Ducts: No intrahepatic or extrahepatic biliary ductal dilation. Spleen: No splenomegaly or focal splenic lesion. Pancreas: No masses or ductal dilation. Adrenals: Normal. Urinary System: Kidneys and Ureters: Normal in size and location. No renal masses. No renal or ureteral calculi. No hydronephrosis or hydroureter. Bladder: Normal. GI System: Stomach, small bowel, and large bowel are normal in caliber without wall thickening or dilation Appendix is normal. Lymph nodes: No lymphadenopathy. Peritoneal cavity and surface: No free fluid. No pneumoperitoneum. Soft Tissues: Normal. Reproductive Organs: Prostatomegaly. Bones: No acute fracture or aggressive osseous lesion. Impression: Diffuse Vascular atherosclerotic calcifications. Moderate stenosis of the left common femoral artery. Nonvisualization of flow in bilateral anterior tibial arteries, dorsalis pedis arteries and faint flow in bilateral peroneal arteries. Abdomen/Pelvis: 1. No acute abdominal pelvic process. Condition at Discharge: Stable Final Diagnosis/Problems List Osteomyelitis of great toe of right foot Cellulitis of right great toe Peripheral arterial disease b/l Hyperkalemia,resolved Diabetes mellitus type 2, uncontrolled, HbA1c 10.7 CHF with reduced ejection fraction 30%, not in exacerbation Hypertensive urgency Discharge Disposition: Home Discharge Instruct/Medications Diet: Consistent carbohydrate, Cardiac 2g Na,low cholest, Renal Activity: No Restrictions, As Tolerated Follow Up/Referral: Follow-up with PCP Follow up with Podiatry in 1 week Follow-up in Discharge Clinic Medications: doxycycline cefpodoxime Scheduled Amiodarone Hcl (Amiodarone Hcl), 200 MG PO BID Apixaban Base (Eliquis), 5 MG PO BID Aspirin (Eq Aspirin Adult Low Dose), 81 MG PO DAILY, (Reported) Aspirin (Aspir-81), 1 TAB PO DAILY, (Reported) Atorvastatin Calcium (Lipitor), 40 MG PO HS Canagliflozin (Invokana), Unknown Dose PO DAILY, (Reported) Carvedilol (Carvedilol), 1 TAB PO BID, (Reported) Cefpodoxime Proxetil (Cefpodoxime Proxetil), 200 MG PO BID Cholecalciferol (Vitamin D), 5,000 UNIT PO QWEEKLY, (Reported) Doxycycline (Monohydrate) (Doxycycline), 100 MG PO BID Ergocalciferol (Vitamin D), 1 CAP PO QWEEKLY, (Reported) Ferrous Sulfate (Ferosul), 1 TAB PO DAILY, (Reported) Finasteride (Finasteride), 1 TAB PO DAILY, (Reported) Gabapentin (Gabapentin), 300 MG PO TID, (Reported) Glimepiride (Amaryl), 4 MG PO BIDWM, (Reported) Hydrocodone-Acetaminophen ([place] 5/325MG), 1 TAB GT TIDP, (Reported) Insulin Glargine (Basaglar Kwikpen), 50 UNIT SC DAILY, (Reported) Metformin Hydrochloride (Metformin Hcl), 2,000 MG PO BIDAC, (Reported) Sulfamethoxazole W/Trimethopri (Bactrim Ds Tablet), 1 TAB PO BID Tamsulosin Hcl (Flomax), 0.4 MG PO DAILY Tamsulosin Hcl (Tamsulosin Hcl), 1 CAP PO DAILY, (Reported) [pravastatin], 40 MG PO HS, (Reported) Scheduled PRN Acetaminophen (Acetaminophen Er), 650 MG PO TID PRN Miscellaneous Medications Dulaglutide (Trulicity), 0.75 MG SC, (Reported) Latanoprost (Latanoprost), EACHEYE, (Reported) Sodium Bicarbonate (Sodium Bicarbonate), 1 TAB PO, (Reported) Discontinued Medications Losartan Potassium (Losartan Potassium), 100 MG PO DAILY, (Reported) Lovastatin (Lovastatin), 1 TAB PO, (Reported) Sacubitril-Valsartan (Entresto 24-26 mg), 1 TAB PO BID, (Reported) Discharge Statement: "Patient was advised to return to the ER or call 911 if any headaches, dizziness, shortness of breath, chest pain, abdominal pain, bleeding, fevers, or worsening of medical condition. Patient was counseled about treatment plan, medications, possible side effects, patientverbalized understanding. All questions were answered to the best of my ability. This discharge took greater then 30 minutes in planning, reviewing documentation, counseling the patient, and discussing with other team members." ASSESSMENT ASSESSMENT Assessment right great toe osteomyelitis and cellulitis Date of Service: Feb 20, 2025 Billing Provider: TIFFANI GUTIERREZ MD Common Visit Codes: 12613-YZU/OBS DISCH DAY >30min YOLETTE HIDALGO RESIDENT Feb 20, 2025 16:28 TIFFANI GUTIERREZ MD Feb 23, 2025 02:29
[2025-02-20] MEDS ORDERED: ATORVASTATIN 20 MG TAB PO SCH (22:00)
[2025-02-21] MEDS ORDERED: CLOPIDOGREL BISULFATE 75 MG TAB PO SCH (10:00)
== END 2025-02-20 19:16 | disposition home or self-care (01) | DRG 300 ==
LOC: ER 07:17 → OVERFLOW 13:45 → CENTRAL 22:50
PROVIDERS: ADMIT Student in an Organized Health Care Education/Training Program; ATTEND Student in an Organized Health Care Education/Training Program
DX: E11.51 Type 2 diabetes mellitus with diabetic peripheral angiopathy without gangrene (principal); I13.0 Hypertensive heart and chronic kidney disease with heart failure and stage 1 through stage 4 chronic kidney disease, or unspecified chronic kidney disease; I50.22 Chronic systolic (congestive) heart failure; N39.0 Urinary tract infection, site not specified; M86.8X7 Other osteomyelitis, ankle and foot; N18.4 Chronic kidney disease, stage 4 (severe); E11.69 Type 2 diabetes mellitus with other specified complication; L03.031 Cellulitis of right toe; I16.0 Hypertensive urgency; E87.5 Hyperkalemia; E78.5 Hyperlipidemia, unspecified; E11.22 Type 2 diabetes mellitus with diabetic chronic kidney disease; N40.0 Benign prostatic hyperplasia without lower urinary tract symptoms; I70.203 Unspecified atherosclerosis of native arteries of extremities, bilateral legs; I25.10 Atherosclerotic heart disease of native coronary artery without angina pectoris; E11.65 Type 2 diabetes mellitus with hyperglycemia; Z95.1 Presence of aortocoronary bypass graft; Z82.3 Family history of stroke; Z83.3 Family history of diabetes mellitus; Z82.49 Family history of ischemic heart disease and other diseases of the circulatory system; Z79.4 Long term (current) use of insulin
CPT/HCPCS: 36415; 71046; 73700; 75635; 80048; 80076; 80202; 80307; 81001; 82962; 83036; 83605; 83735; 83880; 85025; 85610; 85652; 85730; 86141; 87040; 93925; G0378; J0696; J1815